=== PATIENT | female | born 1935 | race Caucasian/White ===

== ENCOUNTER 2019-08-24 08:36 | Inpatient (IN) | payer MEDICARE ==
[~2019-08-24] VITALS: Ht 175.3 cm; Wt 55.3 kg
[2019-08-24 08:36] VITALS: BP 150/107
[~2019-08-24 08:36] MED LIST: ACYCLOVIR 400400 MG PO; ASA81BEC PO; BUTALB-APAP-CA1 EACH PO; CALCITRATE200 MG PO; CARAFATE 1 GM TA1 G1 PO; CLONIDINE0.1 PO; COUMADIN 1MG TAB1 M1; DAILY MULTIPLE1 EACH PO; DETROL2 M1 PO; LIPITOR 20 MG T20 M1 PO; LISINOPRIL10 MG PO; MS CONTIN15 MG PO; NEURONTIN 300300 M1 PO; NITROGLYCERIN0.4 MG SUBLING; OMEPRAZOLE 20 M20 M1 PO; OXYBUTYNIN 5 MG5 M2 PO; PACERONE 200 M200 M1 PO; PEPCID20 MG PO; PLAVIX 75 MG TA75 M1 PO; ROXICODONE5 M2 PO; SPIRIVA INH; TOPROL XL25 MG PO; VITAMIN B-12500 MCG PO; VITAMIN D1000 UNI1 PO; VITAMIN E400 UNIT PO
[2019-08-24] MEDS ORDERED: ACYCLOVIR 400400 MG PO (08:50)
[2019-08-24] MEDS ORDERED: CARVEDILOL12.5 MG PO (08:51)
[2019-08-24] MEDS ORDERED: BENTYL 10 MG CA10 M1 PO (08:51)
[2019-08-24] MEDS ORDERED: DIGOXIN0.125 MG/2 PO (08:51)
[2019-08-24] MEDS ORDERED: REQUIP 0.25 M0.25 M1 PO (08:52)
[2019-08-24] MEDS ORDERED: SERTRALINE HCL100 MG PO (08:52)
[2019-08-24] MEDS ORDERED: PANTOPRAZOLE SO40 M1 PO (08:52)
[2019-08-24 09:13] LABS: ABSOLUTE EOSINOPHILS 0.1 thou/uL (0.0-0.7); ABSOLUTE LYMPHOCYTES 0.7 thou/uL (0.8-5.3); ABSOLUTE MONOCYTES 0.3 thou/uL (0.0-1.2); ABSOLUTE NEUTROPHILS 5.1 thou/uL (1.6-8.1); BASOPHILS 0.7 %; EOSINOPHILS 1.1 %; HEMATOCRIT 38.7 % (37.0-47.0); HEMOGLOBIN 12.5 gm/dL (12.0-15.0); LYMPHOCYTES 11.3 %; MCH 29.2 pg (26.0-34.0); MCHC 32.4 g/dL (28.0-37.0); MCV 90.2 fL (80.0-100.0); MONOCYTES 5.5 %; MPV 7.9 fl. (7.2-11.1); NUCLEATED RBCS 0 /100WBC; PLATELET COUNT* 220 thou/uL (150-400); POLYS 81.4 %; RBC 4.29 mil/uL (4.20-5.00); RDW-CV 18.2 % (10.5-14.5); WBC 6.2 thou/uL (4.0-11.0)
[2019-08-24 09:24] LABS: APTT 23.1 Seconds (25.0-31.3); INR 1.3; PROTIME 12.8 Seconds (9.20-11.50)
[2019-08-24 09:32] LABS: ALBUMIN 2.9 g/dL (3.4-5.0); CALCIUM 7.8 mg/dL (8.5-10.1); MAGNESIUM 1.6 mg/dL (1.8-2.4); POTASSIUM 4.8 mmol/L (3.5-5.1); TOTAL BILIRUBIN 0.5 mg/dL (<0.1-1.0); TOTAL PROTEIN 7.6 g/dL (6.4-8.2)
--- NOTE | 2019-08-24 09:32 | NUR ---
THIS NURSE REQUESTED AN ABG ON PT. PHYSICIAN STATED ABG IS NOT NEEDED AT THIS TIME. AN ABG WILL BE ORDERED WHEN PT STATUS DECLINES
[2019-08-24 09:55] LABS: INFLUENZA A ANTIGEN Negative (Negative); INFLUENZA B ANTIGEN Negative (Negative)
--- NOTE | 2019-08-24 10:08 | NUR ---
VERBAL ORDER FOR PT TO BE TAKEN OFF BIPAP AND PLACED ON HIGH FLOW NASAL CANULA FOR TRANSPORTATION TO CT
--- NOTE | 2019-08-24 10:09 | EKG ---
[place] [address] ELECTROCARDIOGRAM REPORT Name: ELIZABETH FISCHER Room: [facility]#: [id number] Admission: Attend Phys: Discharge: Date of : 35 Report #: [id number] THIS REPORT FOR: //name// [facility] Test Date: 2019-08-24 Test Time: 08:48:05 Pat Name: ELIZABETH FISCHER Department: Room: Gender: Tool Keeper: PRECIOUS : 1935 Requested By: Sancho Rutherford Order Number: [id number] MD: Blake Kaye Measurements Intervals [place] Rate: 140 P: ND: QRS: -107 QRSD: 137 T: 52 QT: 308 QTc: 470 Interpretive Statements Atrial fibrillation RBBB and LAFB Repol abnrm suggests ischemia, diffuse leads Compared to ECG 11/05/2014 00:43:52 Possible ischemia now present Sinus rhythm no longer present Electronically Signed On 08-24-2019 10:08:35 [employer] by Blake Kaye [email or web address] <ELECTRONICALLY SIGNED> By: Blake Kaye MD, [facility] 08/24/19 1008 [id number] 7 Blake Kaye MD, FACC /EPI
--- NOTE | 2019-08-24 10:13 | NUR ---
PT BACK IN ROOM, PLACED BACK ON BIPAP
--- NOTE | 2019-08-24 10:14 | NUR ---
JAMILA NOTIFIED UPON PT RETURN FROM CT. PT WAS CONNECTED TO MONITOR
[2019-08-24 14:33] VITALS: BP 125/60
[2019-08-24 15:00] VITALS: BP 125/62
[2019-08-24 20:00] VITALS: BP 113/50
--- NOTE | 2019-08-24 20:00 | NUR ---
PT VSS, AFIB ON TELE, ORIENTED TO SELF AND PLACE ONLY, ORIENTED PT TO ROOM. PATIENT RESTED AFTER ARRIVING AT ON THE UNIT. HOURLY ROUNDING PERFORMED, CALL LIGHT WITHIN REACH. NC@3L, BEDREST DUE TO WEAKNESS, HERNANDEZ CATHETER
[2019-08-25] VITALS: BP 83/46
[2019-08-25 01:39] LABS: HEMATOCRIT 34.7 % (37.0-47.0); MCH 30.1 pg (26.0-34.0); MCHC 34.6 g/dL (28.0-37.0); MCV 87.1 fL (80.0-100.0); MPV 8.3 fl. (7.2-11.1); RBC 3.99 mil/uL (4.20-5.00); RDW-CV 17.7 % (10.5-14.5); WBC 4.6 thou/uL (4.0-11.0)
[2019-08-25 02:09] LABS: ALBUMIN 2.5 g/dL (3.4-5.0); CALCIUM 7.7 mg/dL (8.5-10.1); CREATININE 0.8 mg/dL (0.6-1.3); MAGNESIUM 1.2 mg/dL (1.8-2.4); TOTAL BILIRUBIN 0.6 mg/dL (<0.1-1.0); TOTAL PROTEIN 6.7 g/dL (6.4-8.2)
[2019-08-25 02:11] LABS: POTASSIUM 3.5 mmol/L (3.5-5.1)
[2019-08-25 02:12] LABS: TROPONIN-I LEVEL 2.82 ng/mL (<0.06)
[2019-08-25 04:00] VITALS: BP 115/54
--- NOTE | 2019-08-25 04:31 | NUR ---
ASSUMED PT CARE AT APPROX 1930. PT IS AWAKE AND ORIENTED TO SELF AND PLACE AND SITUATION. VSS ON 3L OF O2/NC. PT IS ON THE BIPAP AT HS. NO DESATURATIONS NOTED. PT IS TRACING AFIB BBB ON THE ANALYST PROGRAMMER. HEPARIN DRIP INFUSING PER PROTOCOL-BLEEDING PRECAUTIONS IN PLACE. PT DENIES CHEST PAIN/DISCOMFORT. HIGH FALL PRECAUTIONS IN PLACE. CALL LIGHT WITHIN REACH. HOURLY ROUNDING DONE FOR SAFETY.
[2019-08-25 08:00] VITALS: BP 107/53
[2019-08-25 11:30] VITALS: BP 110/59
[2019-08-25 11:50] LABS: CHOLESTEROL 100 mg/dL (<200); HDL CHOLESTEROL 47 mg/dL (>40); LDL CHOLESTEROL 49 mg/dL (<100); TC:HDL 2.1 Ratio (Not establshd); TRIGLYCERIDE 23 mg/dL (<150); VLDL 5 mg/dL (<40)
[2019-08-25 11:51] LABS: SERUM ASSESSMENT Clear
--- NOTE | 2019-08-25 13:46 | EKG ---
[place] [address] ELECTROCARDIOGRAM REPORT Name: SHAISTA FISCHERN Sadi Room: [address] ADM IN M.R.#: [id number] Admission: 08/24/19 Attend Phys: Peggy Holliday Discharge: Date of : 35 Report #: [id number] THIS REPORT FOR: //name// [facility] Test Date: 2019-08-24 Test Time: 16:38:02 Pat Name: ELIZABETH FISCHER Department: Room: [address] Gender: F Teletype Adjuster: NICOLETTE : 1935 Requested By: Peggy Dupont Order Number: [id number] MD: Blake Kaye Measurements Intervals [place] Rate: 87 P: MT: QRS: -64 QRSD: 141 T: -59 QT: 415 QTc: 500 Interpretive Statements Atrial fibrillation RBBB and LAFB Left ventricular hypertrophy Compared to ECG 08/24/2019 08:48:05 Left ventricular hypertrophy now present rate slowed Electronically Signed On 08-25-2019 13:46:11 RETAIL SALES TEAMMATE by Blake Kaye [email or web address] <ELECTRONICALLY SIGNED> By: Blake Kaye MD, [facility] 08/25/19 1346 1638 1638 Blake Kaye MD, [facility] /EPI
--- NOTE | 2019-08-25 14:27 | 2DMMODE ---
[place] [address] 2 D/M-MODE ECHOCARDIOGRAM Name: ELIZABETH FISCHER Room: [address] IN [facility]#: [id number] Admission: 08/24/19 Attend Phys: Peggy lopez Sa Discharge: Date of : 35 Date of Service: 08/25/19 1426 Report #: [id number] THIS REPORT FOR: //name// APPROVED REPORT Study performed: 08/25/2019 11:06:33 EXAM: Comprehensive 2D, Doppler, and color-flow Echocardiogram Patient Location: In-Patient Room #: 201 Status: routine BSA: 1.63 HR: 75 bpm BP: 107/53 mmHg Rhythm: NSR Other Information Study Quality: Good Indications Atrial Fibrillation 2D Dimensions IVSd: 15.76 (7-11mm) LVOT Diam: 20.36 (18-24mm) LVDd: 37.98 mm PWd: 11.06 (7-11mm) Ascending Ao: 31.66 (22-36mm) LVDs: 28.57 (25-40mm) Aortic Root: 29.10 mm Volumes Left Atrial Volume (Systole) LA ESV Index: 59.50 mL/m2 Aortic Valve AoV Peak Ian.: 3.02 m/s AO Peak Gr.: 36.57 mmHg LVOT Max P.25 mmHg AO Mean Gr.: 23.71 mmHg LVOT Mean P.19 mmHg LVOT Max V: 0.75 m/s AO V2 VTI: 62.58 cm LVOT Mean V: 0.51 m/s EVANS (VTI): 0.71 cm2 LVOT V1 VTI: 13.69 cm AI Meade: 2.41 m/s2 AI PHT: 472.97 ms Mitral Valve MV Mean Gr.: 3.35 [place] [address] 2 D/M-MODE ECHOCARDIOGRAM Name: ELIZABETH FISCHER Room: [address] IN .R.#: [id number] Admission: 08/24/19 Attend Phys: Peggy lopez Sa Discharge: Date of : 35 Date of Service: 08/25/19 1426 Report #: [id number] MV Decel. Time: 180.87 ms MV PHT: 52.45 ms MVA (PHT): 4.19 cm2 TDI Medial E' Ian.: 0.09 m/s Lateral E' Ian.: 0.11 m/s Pulmonary Valve PV Peak Ian.: 0.93 m/s PV Peak Gr.: 3.45 mmHg Tricuspid Valve RAP Estimate: 5.00 mmHg TR Peak Gr.: 22.57 mmHg RVSP: 27.00 mmHg PA Pressure: 27.00 mmHg Left Ventricle The left ventricle is normal size. There is normal LV segmental wall motion. Mild concentric left ventricular hypertrophy. Left ventricular systolic function is normal. LVEF is 60-65%. This study is not technically sufficient to allow evaluation of the LV diastolic function due to atrial fibrillation. Right Ventricle Right ventricle is mildly dilated. The right ventricular systolic function is normal. Atria Left atrium is moderately dilated. Right atrium is moderately dilated. Aortic Valve Severe aortic valve sclerosis. Moderate aortic regurgitation. Severe aortic stenosis. Mitral Valve There is mitral annular calcification. Mild mitral regurgitation. No evidence of mitral valve stenosis. Tricuspid Valve The tricuspid valve is normal in structure. Trace tricuspid regurgitation. No pulmonary hypertension. Pulmonic Valve The pulmonary valve is normal in structure. There is no pulmonic [place] [address] 2 D/M-MODE ECHOCARDIOGRAM Name: ELIZABETH FISCHER Room: [address]#: [id number] Admission: 08/24/19 Attend Phys: Peggy lopez Sa Discharge: Date of : 35 Date of Service: 08/25/19 1426 Report #: [id number] Great Vessels The aortic root is normal in size. IVC is normal in size and collapses >50% with inspiration. Pericardium There is no pericardial effusion. <Conclusion> The left ventricle is normal size. Mild concentric left ventricular hypertrophy. Left ventricular systolic function is normal. LVEF is 60-65%. This study is not technically sufficient to allow evaluation of the LV diastolic function due to atrial fibrillation. Right ventricle is mildly dilated. Left atrium is moderately dilated. Right atrium is moderately dilated. Severe aortic valve sclerosis. Moderate aortic regurgitation. Severe aortic stenosis. There is mitral annular calcification. Mild mitral regurgitation. Trace tricuspid regurgitation. No pulmonary hypertension. <ELECTRONICALLY SIGNED> By: Jonas Elizabeth MD, FACC 08/25/19 1426 1426 1426 Jonas Elizabeth MD, FACC /INF
--- NOTE | 2019-08-25 15:17 | NUR ---
Pt is A&O, some confusion. Resides at home with dtr, per Pt her recently and dtr came to live with her. CM spoke with dtr on phone. Pt uses a walker or cane at home for mobility. Dtr stated that she has a hard time getting Pt to want to get up at home. Pt has a cpap provided through [employer] [place], dtr confirms that Pt does not always keep it on all night. Dr questioned the settings, dtr states that she doesn't think that there is an issue with the settings. Pt sees kali Ochoa. Hx of . Hx of [facility] [place]. Dtr thinks that Pt will need SNF at [place], and wants [facility] to fax referral. Therapies ordered. Following.
[2019-08-25 16:09] VITALS: BP 86/47
[2019-08-25 20:00] VITALS: BP 113/46
--- NOTE | 2019-08-25 20:00 | NUR ---
RECEIVED REPORT AND ASSUMED CARE OF PT, ASSESSMENT COMPLETED. PT PLEASANT AND ORIENTED BUT CONVERSATIONS DON'T ALWAYS MAKE SENSE. O2 ON AT 2L/NC. TELEMETRY ON SHOWING A-FIB/FLUTTER WITH BBB AND OCC PVC. WILL CONT TO MONITOR AND ASSIST NEEDED.
--- NOTE | 2019-08-25 20:12 | NUR ---
PT VSS, AFIB WITH BBB ON TELE, PATIENT ORIENTED TO SELF AND PLACE, EXTREME CONFUSION, HERNANDEZ, MAX ASSIST WITH WALKER, PT HELPED TO CHAIR. HEPARIN DRIP THERAPEUTIC, PT NPO AT MIDNIGHT, DAUGHTER BROUGHT CPAP FROM HOME. NC@3L
[2019-08-26] VITALS: BP 126/61
[2019-08-26 03:57] VITALS: BP 86/49
--- NOTE | 2019-08-26 05:27 | NUR ---
SLEPT WELL TONIGHT. ASSIST WITH REPOSITIONING IN BED. NPO SINCE CT FOR STRESS TEST TODAY. IV SITES RESTARTED X2. HEPARIN CONT TO INFUSE. NO CHANGE IN ASSESSMENT. HS GOALS OF REST AND SAFETY ACHIEVED. HOURLY ROUNDING OBSERVED.
[2019-08-26 07:50] LABS: HEMATOCRIT 35.6 % (37.0-47.0); HEMOGLOBIN 11.7 gm/dL (12.0-15.0); MCH 28.9 pg (26.0-34.0); MCV 87.7 fL (80.0-100.0); MPV 8.8 fl. (7.2-11.1); RBC 4.06 mil/uL (4.20-5.00); RDW-CV 17.7 % (10.5-14.5); WBC 10.2 thou/uL (4.0-11.0)
[2019-08-26 08:00] VITALS: BP 120/47
[2019-08-26 08:04] LABS: CALCIUM 7.7 mg/dL (8.5-10.1); CREATININE 0.8 mg/dL (0.6-1.3); POTASSIUM 3.3 mmol/L (3.5-5.1)
--- NOTE | 2019-08-26 08:57 | CON ---
[address] [address] CONSULTATION Name: ELIZABETH FISCHER Room: [address] IN M.R.#: [id number] Admission: 08/24/19 Attend Phys: Peggy Holliday Discharge: Date of : 35 Report #: [id number] THIS REPORT FOR: //name// CC: Peggy Kong MD DATE OF SERVICE: 08/25/2019 INDICATION: Non-ST elevation myocardial infarction and atrial fibrillation. HISTORY OF PRESENT ILLNESS: The patient is an 84-year-old female with history of permanent atrial fibrillation who is not anticoagulated due to GI bleeding in the past. She presented to the hospital with acute shortness of breath, beginning midnight yesterday. The patient was noted to be quite hypoxic in the Emergency Room and was placed on supplemental oxygen with improvement in her symptomatology. EKG shows atrial fibrillation with a bifascicular block without acute ST segment abnormalities. Troponins in this setting were initially less than 0.06, 0.70, 3.04 and 2.82. NT-proBNP was 10,100. She did not have chest pain with this episode. At the time of interview, she was stable. By CT of her chest, she has evidence of coronary calcification consistent with underlying coronary artery disease. The patient denies any history of myocardial infarction. PAST MEDICAL HISTORY: 1. Persistent atrial fibrillation. 2. Chronic obstructive pulmonary disease. 3. Coronary artery disease. 4. Hypercoagulable state. 5. History of deep venous thrombosis with pulmonary embolus, status post IVC filter as she is unable to tolerate anticoagulation. 6. Hypertension. 7. Hyperlipidemia. 8. History of tobacco use. 9. History of cerebrovascular accident. 10. Bilateral mastectomy in 1980. 11. Hysterectomy in 1968. 12. Appendectomy remotely. 13. Stroke in 2011. 14. Sleep apnea. 15. Subclavian steal syndrome. 16. ERCP with stone removal in 2013. 17. Carotid endarterectomy in 2009. ALLERGIES: IODINE, PENICILLIN, TETRACYCLINE, PROTONIX, ASPIRIN, CIPROFLOXACIN, CODEINE, [place] [address] CONSULTATION Name: ELIZABETH FISCHER Room: [address] IN [facility]#: [id number] Admission: 08/24/19 Attend Phys: Peggy Holliday Discharge: Date of : 35 Report #: [id number] HOME MEDICATIONS: Acyclovir 400 mg p.o. daily, aspirin 81 mg p.o. daily, atorvastatin 20 mg at bedtime, carvedilol 3.125 mg p.o. b.i.d., vitamin D 1000 units daily, Bentyl 10 mg q.i.d., digoxin 0.125 mg p.o. daily, Neurontin 300 mg t.i.d., lisinopril 10 mg daily, MS Contin 15 mg 2 tablets p.o. b.i.d., multivitamin 1 tablet daily, Nitrostat p.r.n., omeprazole 20 mg daily, oxycodone 5 mg q. 4 hours p.r.n., Protonix 40 mg daily, Requip 0.25 mg daily, sertraline 100 mg daily, Carafate 1 gram p.o. q.a.c. and at bedtime, Spiriva handheld inhaler 18 mcg inhaler daily. FAMILY HISTORY: Positive for heart disease, hypertension, and lung disease. SOCIAL HISTORY: The patient quit smoking remotely. She does not drink alcohol. PHYSICAL EXAMINATION: VITAL SIGNS: Blood pressure 110/59, pulse is in the 70s and irregular. GENERAL: This is a thin, pleasant, elderly female in no distress. HEENT: The patient is wearing glasses. Extraocular muscles intact. Mucous membranes are moist. NECK: Shows no jugular venous distention. I do not appreciate carotid bruit. CHEST: Reveals diminished breath sounds bilaterally. I do not appreciate rales. CARDIOVASCULAR: Reveals an irregularly irregular rhythm with a soft grade 2/6 systolic ejection murmur. I do not appreciate a gallop. ABDOMEN: Reveals normal bowel sounds. The abdomen is soft and nontender. EXTREMITIES: Shows no edema. Peripheral pulses 1+. SKIN: Dry. LABORATORY DATA: A 12-lead EKG shows atrial fibrillation with a bifascicular block. I do not appreciate acute ST-segment abnormality. IMPRESSION AND RECOMMENDATIONS: 1. Elevated troponin, possibly due to type 2 myocardial infarction secondary to hypoxia. We will plan noninvasive stress testing at this time. Further invasive evaluation pending those results. Continue daily aspirin. 2. Hyperlipidemia, at goal on current dose of atorvastatin. Continue as outlined above. 3. Hypertension, adequately controlled on current regimen. 4. Chronic obstructive pulmonary disease per primary physician. 5. Findings of pneumonia on chest x-ray per primary team. 6. Chronic atrial fibrillation, rate adequately controlled. The patient is not anticoagulated due to bleeding problems in the past. <ELECTRONICALLY SIGNED> By: Jonas Elizabeth MD, [facility] 08/26/19 0857 1343 [id number] Elizabeth MD, FACC /nt
[2019-08-26 12:00] VITALS: BP 121/54
--- NOTE | 2019-08-26 12:45 | NUR ---
[facility] can accept Pt for skilled at dc. Per , anticipate dc tomorrow. Updated Linsey at [facility]
[2019-08-26 16:00] VITALS: BP 79/37
--- NOTE | 2019-08-26 16:45 | CARDNUC ---
[place] [address] CARDIAC NUCLEAR IMAGING REPORT Name: ELIZABETH FISCHER Room: [address] IN [facility]#: [id number] Admission: 08/24/19 Attend Phys: Peggy lopez Sa Discharge: Date of : 35 Date of Service: 08/26/19 1644 Report #: [id number] THIS REPORT FOR: //name// APPROVED REPORT Imaging Protocol: Rest Tc-99m/Stress Tc-99m 2 days Study performed: 08/25/2019 11:18:00 Indication: Dyspnea, Increased troponins, respiratory failure. Patient Location: In-Patient Room #: 201 Stress Tech: Jenny Cole Stress Nurse: Harriet Culver RN [place] Tech:KATHRYN Khan Ht: 5 ft 9 in Wt: 115 lbs BSA: 1.63 m2 BMI: 16.98 Medical History Medical History: Angina, Arrhythmia, Atrial Fibrillation, CAD s/p MO, CAD s/p stent, CHF, COPD, Fatigue, Former Smoker, Heart failure, HTN, Hyperlipidemia, PVD, SOB, Stroke/TIA, Weakness, RVR, O2, Hx DVT/PE s/p IVC, Pneumonia, Increased Troponins, Respiratory Failure. Medications: Lipitor, Coreg, Lasix, Solu-medrol, ASA 81 Mg, Digoxin, Lisinopril, NTG. Allergies: Iodine, Penicillins, Tetracyclines, Pantoprazole, ASA, Ciprofloxacin, Codeine, Fentanyl, Pantoprazole. Cardiac Risk Factors: Age, FHX of CAD, HTN, Hyperlipidemia, SOB, Past Smoker, PVD, AFib, RVR. Previous Cardiac Procedures: Myocardial infarction, PCI. Pretest Chest Pain Characteristics: No chest pain Exercise History: Sedentary Physical Disabilities: Weakness, instability 1-2 Assist in transfers. Meds Held (24 hrs): Coreg, NTG. Resting Data Rest SPECT myocardial perfusion imaging was performed in supine position 30 minutes following the intravenous injection of 12.0 mCi of Tc-99m Sestamibi. Time of rest injection: 1315 Date: 08/25/2019 The images were gated to evaluate regional wall motion and calculate [place] [address] CARDIAC NUCLEAR IMAGING REPORT Name: ELIZABETH FISCHER Room: [address]#: [id number] Admission: 08/24/19 Attend Phys: Peggy lopez Sa Discharge: Date of : 35 Date of Service: 08/26/19 1644 Report #: [id number] Administration Route: IV Administration Site: Right Arm Pharmacologic Stress Pharmacologic stress test was performed by injecting Regadenoson 0.4 mg IV push over 10-15 seconds immediately followed by the intravenous injection of 31.8 mCi of Tc-99m Sestamibi. Time of stress injection: 1010 Date: 08/26/2019 Administration Route: IV Administration Site: Right Arm Gated Stress SPECT was performed 40 minutes after stress injection. The images were gated to evaluate regional wall motion and calculate left ventricular ejection fraction. Stress only was performed in the Supine position. Stress Test Details Stress Test: Pharmacologic stress testing performed using 0.4 mg of regadenoson per 5 mL given IV over 10 seconds. Reason for pharmacologic stress test: physical limitation , generalized weakness/instability.. HR Max Heart Rate (APMHR): 136 bpm Resting HR: 78 bpm Target HR (85% APMHR): 115 bpm Max HR Achieved: 113 bpm % of APMHR: 83 Recovery HR: 94 bpm BP Resting BP: 153/61 mmHg Max BP: 107/55 mmHg Recovery BP: 136/60 mmHg ECG Resting ECG: Atrial Fibrillation Stress ECG: Atrial Fibrillation Arrhythmia: None Recovery ECG: Atrial Fibrillation Recovery ST Change: None Clinical Reason for Termination: Completed protocol Stress Symptoms: None Exercise duration: 0 min 0 sec Exercise capacity: 1.00 METs The patient tolerated Lexiscan infusion [place] [address] CARDIAC NUCLEAR IMAGING REPORT Name: ELIZABETH FISCHER Room: [address] IN .R.#: [id number] Admission: 08/24/19 Attend Phys: Peggy lopez Sa Discharge: Date of : 35 Date of Service: 08/26/19 1644 Report #: [id number] Nurse Comments An 84 year old female inpatient presented for sitting/laying nuclear stress test r/t elevated troponins and dyspnea. Patient tolerated test well in supine position. Recovery unremarkable with PO caffeine, effective. Patient was escorted via wheelchair by staff to nuclear medicine for imaging. Patient was stable and stated she felt good at that time. Stress ECG Conclusion The baseline EKG shows atrial fibrillation with nonspecific ST segment and T wave abnormalities. EKGs obtained during and post Lexiscan infusion show atrial fibrillation without significant changes when compared to baseline. Study Quality Study: Good Artifact: No artifact Study Data At rest, the left ventricular ejection fraction was 63%.. Post stress, the left ventricular ejection was 45%.. TID = 1.11. Perfusion Perfusion images at rest show a large region of moderate intensity defect involving the basal to distal inferior and inferolateral wall without other defects noted. Images obtained after Lexiscan stress show a larger in size more severe intensity defect involving the entire basal to apical inferior and inferolateral wall. Wall Motion There is akinesis of the inferior wall and significant hypokinesis of the inferior wall and septum. Nuclear Conclusion ECG Findings: non-diagnostic Clinical Findings: negative for ischemia Nuclear Findings: positive for ischemia Exercise Capacity: not assessed Left Ventricular Function: abnormal Risk Study: high Perfusion images suggest prior inferior infarct with a moderate region of donnie-infarct ischemia. There are wall motion abnormalities as outlined above. Findings consistent with an ischemic cardiomyopathy. [place] [address] CARDIAC NUCLEAR IMAGING REPORT Name: ELIZABETH FISCHER Room: [address] IN M.R.#: [id number] Admission: 08/24/19 Attend Phys: Peggy lopez Sa Discharge: Date of : 35 Date of Service: 08/26/19 1644 Report #: [id number] <Conclusion> The baseline EKG shows atrial fibrillation with nonspecific ST segment and T wave abnormalities. EKGs obtained during and post Lexiscan infusion show atrial fibrillation without significant changes when compared to baseline. <ELECTRONICALLY SIGNED> By: Jonas Elizabeth MD, FACC 08/26/19 1644 43 43 Jonas Elizabeth MD, FACC /INF
--- NOTE | 2019-08-26 17:23 | NUR ---
VSS, ASSUMED CARE IN THE AM, ASSESSMENT PERFORMED AND CHARTED, FALL PRECAUTIONS IN PLACE NAD CALL LIGHT IN REACH, PT IS A&O3 SHE IS CONFUSED. PT DENIES ANY PAIN, PT IS TRACING AFIB ON THE MONITOR, PT IS UP WITH ONE, PT GOAL IS TO COMPLETE STRESS TEST, PT HAS COMPLETED THIS, WILL FOLLOW PLAN OF CARE.
[2019-08-26 20:00] VITALS: BP 97/77
[2019-08-27] VITALS (7 sets, daily range): BP systolic 74–115; BP diastolic 46–62
--- NOTE | 2019-08-27 05:15 | NUR ---
PT REMAINS ALERT WITH CONFUSION, UNABLE TO WEAR CPAP D/T MISSING PIECE ON MASK, RT AWARE AND GETTING NEW MASK FOR PT. PT PAIN IS CONTROLLED WITH SCHEDULED PAIN MEDIACTION. PT REPORTS NO CONCERNS AT THIS TIME, CURRENTLY IN BED WITH CALL LIGHT WITHIN REACH AND BED ALARM ON.
[2019-08-27 05:17] LABS: HEMOGLOBIN 11.2 gm/dL (12.0-15.0); MCV 87.8 fL (80.0-100.0); MPV 9.1 fl. (7.2-11.1); RBC 3.87 mil/uL (4.20-5.00); RDW-CV 17.9 % (10.5-14.5); WBC 8.9 thou/uL (4.0-11.0)
[2019-08-27 05:32] LABS: CALCIUM 7.8 mg/dL (8.5-10.1); CREATININE 0.9 mg/dL (0.6-1.3); MAGNESIUM 1.7 mg/dL (1.8-2.4); POTASSIUM 4.2 mmol/L (3.5-5.1)
[2019-08-27] MEDS ORDERED: LEVAQUIN 750 M750 MG PO (08:50)
--- NOTE | 2019-08-27 10:45 | NUR ---
Pt's dc delayed, V can accept Pt for skilled tomorrow. Updated nurse and CM to updated dtr.
[2019-08-28 04:11] VITALS: BP 90/45
--- NOTE | 2019-08-28 05:02 | NUR ---
PT CONTIUNES TO BE ALERT WITH CONFUSION AND IMPULISIVE BEHAVIORS AT TIMES. MAINTAINING O2 SAT > THAN 90% ON 2L NC. UNABLE TO WEAR CPAP D/T MISSING MASK PIECE. PT HAS BEEN ABLE TO SLEEP MORE THIS SHIFT THAN PRIOR TWO HS SHIFTS. DICCHARGE PLANNED FOR TOMORROW WITH PLACEMENT. CURRENTLY ASLEEP IN BED WITH CALL LIGHT WITHIN REACH AND BED ALARM ON.
[2019-08-28 08:03] VITALS: BP 135/57
[2019-08-28] MEDS ORDERED: XANAX 0.25 MG0.25 MG PO (10:45)
--- NOTE | 2019-08-28 13:44 | NUR ---
VSS, ASSUMED CARE IN THE AM, ASEESSMENT PERFORMED AND CHARTED, FALL PRECAUTIONS IN PLACE AND CALL LIGHT IN REACH, PT IS A&O2 CONFUSED AT TIMES AND UP WITH STAND BY, PT DENIES ANY PAIN, I HAVE TAKEN OUT HERNANDEZ AND SHE HAS VOIDED AT THIS TIME, PT IS ON 2L NC AND HER GOAL IS TO WORK WITH PT/OT AND SIT UP IN CHAIR, AT THIS THIS TIME I HAVE BEEN GIVEN DISCHARGE ORDERS, FILLED OUT D/C PAPERS, CALLED REPORT TO M, PROVITED CALL BACK NUMBER,, IV AND TELE MONITOR HAS BEEN REMOVED, PT IS TO TRANSPORT VIA W/C VAN, WILL FOLLOW WITH PLAN OF CARE.
[2019-08-28 13:51] VITALS: BP 94/58
[2019-08-28] MEDS ORDERED: MS CONTIN 30 MG30 M1 PO (17:44)
== END 2019-08-28 15:35 | DRG 871 ==
LOC: M.ERS 08:36 → M.TBA-ER 10:36 → M.2W 10:36
PROVIDERS: Family Medicine; Internal Medicine Cardiovascular Disease; ADMIT Family Medicine
PROC: 5A09357 Assistance with Respiratory Ventilation, Less than 24 Consecutive Hours, Continuous Positive Airway Pressure (ICD-10-PCS; principal; 2019-08-24)
PROC: 5A09357 Assistance with Respiratory Ventilation, Less than 24 Consecutive Hours, Continuous Positive Airway Pressure (ICD-10-PCS; 2019-08-25)
PROC: 5A09357 Assistance with Respiratory Ventilation, Less than 24 Consecutive Hours, Continuous Positive Airway Pressure (ICD-10-PCS; 2019-08-26)
PROC: 5A09357 Assistance with Respiratory Ventilation, Less than 24 Consecutive Hours, Continuous Positive Airway Pressure (ICD-10-PCS; 2019-08-27)
PROC: 5A09357 Assistance with Respiratory Ventilation, Less than 24 Consecutive Hours, Continuous Positive Airway Pressure (ICD-10-PCS; 2019-08-28)
DX: A41.9 Sepsis, unspecified organism (principal); J18.9 Pneumonia, unspecified organism; J96.01 Acute respiratory failure with hypoxia; I21.4 Non-ST elevation (NSTEMI) myocardial infarction; I50.33 Acute on chronic diastolic (congestive) heart failure; J44.1 Chronic obstructive pulmonary disease with (acute) exacerbation; J44.0 Chronic obstructive pulmonary disease with (acute) lower respiratory infection; I48.21 Permanent atrial fibrillation; D68.59 Other primary thrombophilia; R65.20 Severe sepsis without septic shock; B02.9 Zoster without complications; E78.00 Pure hypercholesterolemia, unspecified; M25.551 Pain in right hip; M19.90 Unspecified osteoarthritis, unspecified site; G47.30 Sleep apnea, unspecified; I73.9 Peripheral vascular disease, unspecified; I25.10 Atherosclerotic heart disease of native coronary artery without angina pectoris; E78.5 Hyperlipidemia, unspecified; K59.00 Constipation, unspecified; I11.0 Hypertensive heart disease with heart failure; I35.0 Nonrheumatic aortic (valve) stenosis; Z86.718 Personal history of other venous thrombosis and embolism; Z90.89 Acquired absence of other organs; Z99.81 Dependence on supplemental oxygen; Z90.710 Acquired absence of both cervix and uterus; Z79.01 Long term (current) use of anticoagulants; Z90.13 Acquired absence of bilateral breasts and nipples; Z87.01 Personal history of pneumonia (recurrent); I25.2 Old myocardial infarction; Z86.73 Personal history of transient ischemic attack (TIA), and cerebral infarction without residual deficits; Z86.711 Personal history of pulmonary embolism; Z79.82 Long term (current) use of aspirin; Z79.891 Long term (current) use of opiate analgesic; Z79.899 Other long term (current) drug therapy; Z88.5 Allergy status to narcotic agent; Z88.0 Allergy status to penicillin; Z88.8 Allergy status to other drugs, medicaments and biological substances; Z91.041 Radiographic dye allergy status

== ENCOUNTER 2019-09-01 06:26 | Inpatient (IN) | payer MEDICARE ==
[~2019-09-01] VITALS: Ht 175.3 cm; Wt 58.7 kg
[~2019-09-01 06:26] MED LIST changes: +BENTYL 10 MG CA10 M1 PO; +CARVEDILOL12.5 MG PO; +DIGOXIN0.125 MG/2 PO; +LEVAQUIN 750 M750 MG PO; +MS CONTIN 30 MG30 M1 PO; +PANTOPRAZOLE SO40 M1 PO; +REQUIP 0.25 M0.25 M1 PO; +SERTRALINE HCL100 MG PO; +XANAX 0.25 MG0.25 MG PO
[2019-09-01 06:27] VITALS: BP 88/42
[2019-09-01 06:56] LABS: BE 1.5 mmol/L (-2 to +3); PCO2 41.9 mmHg (35.0-45.0); pH 7.415 (7.340-7.450)
[2019-09-01 06:59] LABS: PO2 265.7 mmHg (75.0-100.0)
[2019-09-01 07:04] LABS: ABSOLUTE EOSINOPHILS 0.1 thou/uL (0.0-0.7); ABSOLUTE LYMPHOCYTES 0.5 thou/uL (0.8-5.3); ABSOLUTE MONOCYTES 0.3 thou/uL (0.0-1.2); ABSOLUTE NEUTROPHILS 2.8 thou/uL (1.6-8.1); BASOPHILS 0.3 %; EOSINOPHILS 3.7 %; HEMATOCRIT 22.1 % (37.0-47.0); HEMOGLOBIN 7.4 gm/dL (12.0-15.0); LYMPHOCYTES 14.4 %; MCH 29.2 pg (26.0-34.0); MCHC 33.3 g/dL (28.0-37.0); MCV 87.7 fL (80.0-100.0); MONOCYTES 8.7 %; MPV 8.6 fl. (7.2-11.1); NUCLEATED RBCS 0 /100WBC; PLATELET COUNT* 118 thou/uL (150-400); POLYS 72.9 %; RBC 2.52 mil/uL (4.20-5.00); RDW-CV 17.1 % (10.5-14.5); WBC 3.8 thou/uL (4.0-11.0)
[2019-09-01 07:12] LABS: INR 1.4; PROTIME 14.2 Seconds (9.20-11.50)
[2019-09-01] MEDS ORDERED: MILK OF MA400 MG/5 M PO (07:14)
[2019-09-01] MEDS ORDERED: DULCOLAX STOOL100 M1 PO (07:14)
[2019-09-01] MEDS ORDERED: PROAIR HFA8.5 GM INH (07:15)
[2019-09-01] MEDS ORDERED: TYLENOL325 MG PO (07:15)
[2019-09-01] MEDS ORDERED: SYMBICORT160 MCG/4. INH (07:15)
[2019-09-01] MEDS ORDERED: LEVAQUIN 750 M750 MG PO (07:15)
[2019-09-01] MEDS ORDERED: MUCINEX600 MG PO (07:16)
[2019-09-01 07:18] LABS: ALBUMIN 1.2 g/dL (3.4-5.0); ALKALINE PHOSPHATASE 63 U/L (46-116); BUN 18 mg/dL (7-18); CREATININE 0.8 mg/dL (0.6-1.3); GLUCOSE 62 mg/dL (70-99); LIPASE 99 U/L (73-393); NT-PRO BRAIN NAT PEPTIDE 3671 pg/mL (<300); SGOT 21 U/L (15-37); SGPT 16 U/L (30-65); TOTAL BILIRUBIN 0.2 mg/dL (<0.1-1.0); TOTAL PROTEIN 3.3 g/dL (6.4-8.2)
[2019-09-01 07:26] LABS: URINE BILIRUBIN NEGATIVE (Negative); URINE BLOOD NEGATIVE (Negative); URINE CLARITY CLEAR; URINE COLOR YELLOW; URINE GLUCOSE-RANDOM NEGATIVE (Negative); URINE KETONES NEGATIVE (Negative); URINE LEUKOCYTES-REFLEX NEGATIVE (Negative); URINE NITRITE-REFLEX NEGATIVE (Negative); URINE PROTEIN NEGATIVE (Negative); URINE UROBILINOGEN 0.2 E.U./dl (0.2-1.0)
[2019-09-01 07:30] LABS: ANION GAP 8 mmol/L (7-16); CHLORIDE 113 mmol/L (98-107); CO2 22 mmol/L (21-32); SODIUM 143 mmol/L (136-145)
[2019-09-01 07:32] LABS: POTASSIUM 2.4 mmol/L (3.5-5.1)
[2019-09-01 07:33] LABS: CALCIUM < 5.0 mg/dL (8.5-10.1)
--- NOTE | 2019-09-01 07:44 | NUR ---
UNABLE TO REACH AT THIS TIME
[2019-09-01 10:12] LABS: PHOSPHORUS* 2.1 mg/dL (2.5-4.9)
[2019-09-01 10:14] LABS: MAGNESIUM 0.9 mg/dL (1.8-2.4)
--- NOTE | 2019-09-01 12:18 | NUR ---
SEE BLOOD TRANSFUSION SHEET
--- NOTE | 2019-09-01 12:34 | NUR ---
SPOKE WITH PT'S BHUMIKAOA, SOFIA EID [phone]
[2019-09-01 14:00] VITALS: BP 99/42
[2019-09-01 14:33] LABS: % SATURATION 20 % (20-39); IRON 22 ug/dL (50-175)
--- NOTE | 2019-09-01 14:37 | EKG ---
[place] [address] ELECTROCARDIOGRAM REPORT Name: ELIZABETH FISCHER Room: [place] [address] ADM IN .R.#: [id number] Admission: 09/01/19 Attend Phys: Devon Rivera Discharge: Date of : 35 Report #: [id number] THIS REPORT FOR: //name// [facility] ED Test Date: 2019-09-01 Test Time: 06:36:32 Pat Name: ELIZABETH FISCHER Department: Room: [facility] Gender: F Flat Sorter Processor: : 1935 Requested By: Soheila Jones Order Number: [id number] MD: Jonas Elizabeth Measurements Intervals [place] Rate: 74 P: GA: QRS: -70 QRSD: 143 T: -54 QT: 436 QTc: 484 Interpretive Statements Atrial fibrillation RBBB and LAFB Probable left ventricular hypertrophy Compared to ECG 08/24/2019 16:38:02 No significant changes Electronically Signed On 09-01-2019 14:37:09 IN FLIGHT REFUELING CRAFTSMAN by Jonas Elizabeth [email or web address] <ELECTRONICALLY SIGNED> By: Jonas Elizabeth MD, [facility] 09/01/19 1437 0636 0636 Jonas Elizabeth MD, [facility] /EPI
[2019-09-01 14:42] LABS: HEMATOCRIT 35.7 % (37.0-47.0)
[2019-09-01 14:45] LABS: HEMOGLOBIN 11.6 gm/dL (12.0-15.0)
[2019-09-01 15:30] LABS: ABSOLUTE EOSINOPHILS 0.1 thou/uL (0.0-0.7); ABSOLUTE LYMPHOCYTES 1.3 thou/uL (0.8-5.3); ABSOLUTE MONOCYTES 0.6 thou/uL (0.0-1.2); ABSOLUTE NEUTROPHILS 3.8 thou/uL (1.6-8.1); BASOPHILS 0.3 %; EOSINOPHILS 2.1 %; HEMATOCRIT 37.7 % (37.0-47.0); HEMOGLOBIN 12.3 gm/dL (12.0-15.0); LYMPHOCYTES 22.7 %; MCH 28.2 pg (26.0-34.0); MCHC 32.6 g/dL (28.0-37.0); MCV 86.5 fL (80.0-100.0); MONOCYTES 10.4 %; MPV 8.2 fl. (7.2-11.1); NUCLEATED RBCS 0 /100WBC; PLATELET COUNT* 156 thou/uL (150-400); POLYS 64.5 %; RBC 4.35 mil/uL (4.20-5.00); WBC 5.9 thou/uL (4.0-11.0)
[2019-09-01 15:50] LABS: BUN 20 mg/dL (7-18); CHLORIDE 112 mmol/L (98-107); TOTAL BILIRUBIN 0.3 mg/dL (<0.1-1.0); TOTAL PROTEIN 3.1 g/dL (6.4-8.2)
[2019-09-01 16:05] LABS: ALBUMIN 1.2 g/dL (3.4-5.0); ALKALINE PHOSPHATASE 62 U/L (46-116); ANION GAP 10 mmol/L (7-16); CO2 20 mmol/L (21-32); CREATININE 0.8 mg/dL (0.6-1.3); GLUCOSE 58 mg/dL (70-99); PHOSPHORUS* 2.1 mg/dL (2.5-4.9); SGOT 24 U/L (15-37); SGPT 17 U/L (30-65); SODIUM 142 mmol/L (136-145)
[2019-09-01 16:07] LABS: POTASSIUM 2.4 mmol/L (3.5-5.1)
[2019-09-01 16:08] LABS: CALCIUM < 5.0 mg/dL (8.5-10.1)
[2019-09-01 17:27] VITALS: BP 123/48
[2019-09-01 20:00] VITALS: BP 114/52
[2019-09-02] VITALS (7 sets, daily range): BP systolic 77–119; BP diastolic 37–53
--- NOTE | 2019-09-02 04:50 | NUR ---
ASSUMED PT CARE AT APPROX 1930. PT IS AWAKE AND ORIENTED TO SELF AND PLACE. VSS ON 4L OF O2/NC. PANTOGRAPH I ENGRAVER IN PLACE TRACINF AFIB-RATE CONTROLLED. ASSESSMENT DONE AND CHARTED. PT DENIES PAIN/DISCOMFORT. POSITION CHANGES DONE. HIGH FALL PRECAUTIONS IN PLACE. CALL LIGHT WITHIN REACH. HOURLY ROUNDING DONE FOR PT SAFETY.
[2019-09-02 05:26] LABS: ABSOLUTE LYMPHOCYTES 0.5 thou/uL (0.8-5.3); ABSOLUTE MONOCYTES 0.2 thou/uL (0.0-1.2); ABSOLUTE NEUTROPHILS 2.2 thou/uL (1.6-8.1); BASOPHILS 0.3 %; HEMATOCRIT 35.6 % (37.0-47.0); HEMOGLOBIN 11.7 gm/dL (12.0-15.0); LYMPHOCYTES 17.2 %; MCHC 32.8 g/dL (28.0-37.0); MCV 85.2 fL (80.0-100.0); MONOCYTES 7.6 %; MPV 8.3 fl. (7.2-11.1); NUCLEATED RBCS 0 /100WBC; PLATELET COUNT* 166 thou/uL (150-400); POLYS 74.9 %; RBC 4.18 mil/uL (4.20-5.00); RDW-CV 19.8 % (10.5-14.5); WBC 2.9 thou/uL (4.0-11.0)
[2019-09-02 05:50] LABS: CREATININE 0.8 mg/dL (0.6-1.3); TOTAL BILIRUBIN 0.5 mg/dL (<0.1-1.0); TOTAL PROTEIN 5.7 g/dL (6.4-8.2)
[2019-09-02 05:51] LABS: CALCIUM 7.5 mg/dL (8.5-10.1); POTASSIUM 5.8 mmol/L (3.5-5.1)
--- NOTE | 2019-09-02 09:06 | NUR ---
assumed pt care report received from nurse pt is aox2. on 4 l nc. o2 saturation at 97%. pt lying in bed. no pain. denies nausea/vomiting. vs taken. bp pressure low 77/46. pt kept in trendelenburg position for 30 minutes. vs at 0830 am. blood pressure 111/51, heart rate 65. lisinopril and coreg not given due to low bp. pt currently eating breakfast. bed alarm on. call light within reach. will continue to monitor
--- NOTE | 2019-09-02 11:39 | NUR ---
FAXED REFERRAL TO [facility] [phone]; [phone]. WILL CALL TO CONFIRM THAT THEY HAVE RECEIVED.
--- NOTE | 2019-09-02 12:00 | NUR ---
MET WITH PT TO DISCUSS HOME SITUATION/DC PLANNING. PT JUST DC'D TO [facility] ON 08/28, PLANS TO RETURN THERE AT [place]. ASKED DC RETURNED GOODS INSPECTOR TO FAX UPDATE TO [facility]. [facility] STATED THEY WILL BE ABLE TO ACCEPT PT BACK AT [place]. PRIOR TO SNF, PT LIVES WITH DTR, USES WALKER AND CPAP THRU [facility]. PT'S SPOUSE RECENTLY AND SHE HAS HAD DECLINE IN FUNCTION. NO FAMILY HERE AT THIS TIME. PER CHART, DTR/SOFIA IS DPOA. WILL FOLLOW
--- NOTE | 2019-09-02 14:59 | EKG ---
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
[2019-09-02 15:53] LABS: ABSOLUTE MONOCYTES 0.8 thou/uL (0.0-1.2); ABSOLUTE NEUTROPHILS 4.9 thou/uL (1.6-8.1); BASOPHILS 0.3 %; EOSINOPHILS 0.6 %; HEMATOCRIT 35.9 % (37.0-47.0); HEMOGLOBIN 11.7 gm/dL (12.0-15.0); LYMPHOCYTES 15.1 %; MCH 27.8 pg (26.0-34.0); MCHC 32.7 g/dL (28.0-37.0); MONOCYTES 11.6 %; MPV 8.4 fl. (7.2-11.1); NUCLEATED RBCS 0 /100WBC; PLATELET COUNT* 197 thou/uL (150-400); POLYS 72.4 %; RBC 4.22 mil/uL (4.20-5.00); WBC 6.8 thou/uL (4.0-11.0)
[2019-09-02 16:09] LABS: CALCIUM 7.6 mg/dL (8.5-10.1); CREATININE 0.8 mg/dL (0.6-1.3); TOTAL BILIRUBIN 0.4 mg/dL (<0.1-1.0)
[2019-09-02 16:10] LABS: POTASSIUM 4.8 mmol/L (3.5-5.1)
--- NOTE | 2019-09-02 16:38 | NUR ---
coreg and lisinopril not given. pt sbp in the 80s. pt is asymptomatic. iv ns given as ordered, currently infusing. no further complaint. troponin elevated.see chart. result communicateed to hospitalist. ekg shows afib reading with rate controlled. will continue to monitor
[2019-09-03 00:25] VITALS: BP 114/52
--- NOTE | 2019-09-03 03:49 | NUR ---
PT ALERT ORIENTED. UP WITH ASSIST OF ONE TO BR. O2 AT 4 LITERS NC. TELEMETRY SHOWS AFIB. WCTM.
[2019-09-03 04:00] VITALS: BP 116/52
[2019-09-03 04:32] LABS: ABSOLUTE EOSINOPHILS 0.2 thou/uL (0.0-0.7); ABSOLUTE LYMPHOCYTES 1.4 thou/uL (0.8-5.3); ABSOLUTE MONOCYTES 0.5 thou/uL (0.0-1.2); ABSOLUTE NEUTROPHILS 4.9 thou/uL (1.6-8.1); BASOPHILS 0.5 %; EOSINOPHILS 3.3 %; HEMATOCRIT 34.7 % (37.0-47.0); HEMOGLOBIN 11.4 gm/dL (12.0-15.0); LYMPHOCYTES 19.7 %; MCH 28.1 pg (26.0-34.0); MCV 85.3 fL (80.0-100.0); MONOCYTES 6.6 %; MPV 8.2 fl. (7.2-11.1); NUCLEATED RBCS 0 /100WBC; PLATELET COUNT* 197 thou/uL (150-400); POLYS 69.9 %; RBC 4.07 mil/uL (4.20-5.00); RDW-CV 19.9 % (10.5-14.5)
[2019-09-03 08:26] VITALS: BP 165/62
--- NOTE | 2019-09-03 10:00 | NUR ---
ASSUMED CARE AFTER REPORT APPROX 0730. PLEASANTLY CONFUSED, ORIENTED TO SELF, UNABLE TO EXPRESS NEEDS TO STAFF. ASSESSMENT COMPLETED, VS OBTAINED, WNL. RISK AND INSURANCE CONSULTANT IN PLACE, AFIB BBB. FREQUENT CHECKS FOR PATIENT SAFETY AND NEEDS.
--- NOTE | 2019-09-03 12:02 | NUR ---
CONTINUE TO FOLLOW, SPOKE WITH NONA/SOFIA OVER THE PHONE. PLAN IS FOR PT TO RETURN TO [facility] AT [place]. SOFIA IS AT HOME WITH PNEUMONIA ALSO AND WANTS TO BE CALLED FOR ANY CONCERNS. [phone]
[2019-09-03 12:27] VITALS: BP 119/47
[2019-09-03 16:17] VITALS: BP 152/62
--- NOTE | 2019-09-03 17:02 | EKG ---
[place] [address] ELECTROCARDIOGRAM REPORT Name: ELIZABETH FISCHER Room: [address] ADM IN M.R.#: [id number] Admission: 09/01/19 Attend Phys: Devon Rivera Discharge: Date of : 35 Report #: [id number] THIS REPORT FOR: //name// 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: : 1935 Requested By: Baljeet Francisco Order Number: [id number] Reading MD: Ariel Pearl Measurements Intervals [place] Rate: 68 P: NV: QRS: -53 QRSD: 144 T: -27 QT: 428 QTc: 456 Interpretive Statements Atrial fibrillation RBBB and LAFB LVH with secondary repolarization abnormality Compared to ECG 09/01/2019 15:08:24 Left ventricular hypertrophy now present Early repolarization now present Electronically Signed On 09-03-2019 17:02:20 OCULAR CARE TECHNICIAN by Ariel Pearl [email or web address] <ELECTRONICALLY SIGNED> By: Ariel Pearl MD, [facility] 09/03/19 1702 1555 1555 Ariel Pearl MD, [facility] /EPI
[2019-09-03 20:38] VITALS: BP 107/68
[2019-09-04] VITALS (7 sets, daily range): BP systolic 91–120; BP diastolic 51–74
--- NOTE | 2019-09-04 05:34 | NUR ---
PT IS ABLE TO COMMUNICATE HER NEEDS TO STAFF WITH SOME DIFFICULTY; SHE IS USUALLY CONFUSED, BUT CAN ANSWER SOME QUESTIONS AND FOLLOW SOME COMMANDS AT TIMES. SHE IS OFTEN IMPULSIVE AND SOMETIMES INCONTINENT. CURRENT PAIN MEDICATION REGIMEN HAS BEEN ADEQUATE FOR CONTROLLING HER CHRONIC PAIN UP TO THIS TIME. POSSIBLE DISCHARGE BACK TO [facility].
--- NOTE | 2019-09-04 09:00 | NUR ---
ASSUMED CARE OF PT AT 0730. PT LYING IN BED. PT A&0X1, CONFUSED, IMPULSIVE AND FORGETFUL. BED ALARM IN PLACE. PT TRACING AFIB ON THE LOG DECK TENDER-RATE CONTROLLED. ON RA SAT UPPER 93%. PT DENIES ANY PAIN OR SHORTNESS OF BREATH AT THIS TIME. PT UP WITH 1 ASSIST AND WALKER TO BS. PT GOAL FOR TODAY IS OBTAIN URINALYSIS, INCREASE ACTIVITY AND MONITOR ORIENTATION. AM ASSESSMENT CHARTED. MEDICATIONS PER OCT. PT REPOSITIONED EVERY 2 HOURS FOR COMFORT. . HOURLY ROUNDING OBSERVED. BED IN LOW POSITION, BED ALARM IN PLACE. FALL PRECAUTIONS IN PLACE. CALL LIGHT WITHIN REACH. WILL CONTINUE PLAN OF CARE.
--- NOTE | 2019-09-04 13:45 | CON ---
[address] [address] CONSULTATION Name: ELIZABETH FISCHER Room: [address] IN M.R.#: [id number] Admission: 09/01/19 Attend Phys: Devon Rivera Discharge: Date of : 35 Report #: [id number] THIS REPORT FOR: //name// CC: VARSHA physician/PCP Baljeet Francisco INDICATION: Non-ST elevation myocardial infarction in the setting of acute hypoxic respiratory failure. HISTORY OF PRESENT ILLNESS: The patient is a very pleasant 84-year-old moderately demented white female known to myself from prior admission. She was brought to the Emergency Room by EMS due to acute respiratory failure. O2 sat on arrival was 70%. The patient was found to be hypokalemic and anemic as well. The patient was transfused a unit of blood and placed on supplemental oxygen. At the time of my interview, she is stable. She denies any chest pain or shortness of breath presently. She has a history of coronary artery disease based on findings of dense coronary calcification on CT scan of her chest recently. At her last hospitalization with similar presentation, she had elevated troponin as well. Throughout that hospitalization, she denied chest pain as well. By echocardiogram last week, she has an ejection fraction of 60-65%. She has mild concentric left ventricular hypertrophy. Cardiac stress testing showed evidence of inferolateral infarct with a moderate region of periinfarct ischemia. 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 She returned prematurely here to the Emergency Room. She has chronic atrial fibrillation. She is not anticoagulated due to bleeding problems. PAST MEDICAL HISTORY: 1. Coronary artery disease. 2. Remote history of myocardial infarction based on noninvasive studies. 3. Chronic atrial fibrillation. 4. COPD. 5. Hypercoagulable state due to atrial fibrillation. 6. History of DVT, status post IVC filter placement. 7. Hypertension. 8. Hyperlipidemia. 9. Remote history of tobacco use. 10. History of CVA. 11. Bilateral mastectomy in 1980. 12. Hysterectomy 1968. 13. Appendectomy remotely. 14. Stroke 2011. 15. Sleep apnea. 16. [place] [address] CONSULTATION Name: ELIZABETH FISCHER Room: [address]#: [id number] Admission: 09/01/19 Attend Phys: Devon Rivera Discharge: Date of : 35 Report #: [id number] 17. ERCP with stone retrieval in 2013. 18. Carotid endarterectomy 2009. ALLERGIES: IODINE, PENICILLIN, TETRACYCLINE, PROTONIX, ASPIRIN, CIPROFLOXACIN, CODEINE, AND FENTANYL. HOME MEDICATIONS: Tylenol p.r.n., acyclovir 200 mg daily, albuterol 2 puffs q 4-6 h. as needed, alprazolam 0.25 mg t.i.d. p.r.n., aspirin 81 mg daily, Lipitor 20 mg at bedtime, Symbicort 160/4.5 as directed, carvedilol 3.125 mg b.i.d., vitamin D 1000 units daily, Bentyl 10 mg q.i.d., digoxin 0.125 mg daily, Colace 1 capsule b.i.d., gabapentin 300 mg t.i.d., Mucinex 600 mg q.12 h., Levaquin 750 mg daily, lisinopril 10 mg daily, milk of magnesia p.r.n., MS Contin 30 mg b.i.d., multivitamin 1 daily, Nitrostat p.r.n., omeprazole 20 mg daily, oxycodone 5 mg q. 4 h. p.r.n., ropinirole 0.25 mg daily, sertraline 100 mg daily, Carafate 1 g q.a.c. and bedtime, and Spiriva Handihaler daily. FAMILY HISTORY: Positive for heart disease, hypertension, and lung disease. SOCIAL HISTORY: The patient quit smoking remotely. She does not drink alcohol. PHYSICAL EXAMINATION: VITAL SIGNS: Stable. Blood pressure 123/69, pulse 70, and irregular. GENERAL: This is a pleasant, elderly, thin, white female, in no distress. HEENT: Extraocular muscles intact. Mucous membranes moist. NECK: Shows jugular venous distention. I do not appreciate carotid bruit. CHEST: Reveals diminished breath sounds bilaterally. CARDIOVASCULAR: Reveals an irregularly irregular rhythm with a 2/6 systolic ejection murmur. I do not appreciate gallop. ABDOMEN: Reveals normal bowel sounds. The abdomen is soft, nontender. EXTREMITIES: Shows no edema. Peripheral pulses are 1+ and palpable. SKIN: Dry. IMPRESSION AND RECOMMENDATIONS: 1. Recurrent elevation of troponin in the setting of acute hypoxia with underlying known coronary disease. This may represent a type 2 myocardial infarction, although the patient is not having symptoms to suggest acute coronary syndrome. At this point, we will be in favor of continuing medical management. If the patient's respiratory status improves and her mental status clears, we may consider discussion of invasive evaluation. 2. Hyperlipidemia. Continue atorvastatin. 3. Hypoxic respiratory failure. The patient has multiple issues, COPD, chronic narcotic use, and likely diastolic/systolic heart failure. Follow BNP. [facility] [address] [place] [address] CONSULTATION Name: ELIZABETH FISCHER Room: [address] IN M.R.#: [id number] Admission: 09/01/19 Attend Phys: Devon Rivera Discharge: Date of : 35 Report #: [id number] 4. Chronic atrial fibrillation, adequately rate controlled. She is not anticoagulated due to bleeding. <ELECTRONICALLY SIGNED> By: Jonas Elizabeth MD, FACC 09/04/19 1345 1744 [id number] Elizabeth MD, FACC /nt
--- NOTE | 2019-09-04 16:22 | NUR ---
[facility] CAN ACCEPT PT AT [place]. [facility] [phone] [facility] [phone]
--- NOTE | 2019-09-04 16:43 | NUR ---
NO ACUTE CHANGES THROUGHOUT SHIFT. REFER TO CHARTING. CRACKLES NOTED TO LOWERS LOBES- DR DEJESUS NOTIFIED. ORDERS RECEIVED FOR ID CONULT- ADDITIONAL ANTIBIOTICS ADDED-REFER TO EMAR. RESPIRATORY VIRAL PANEL ORDERED WELL AND SENT TO LAB. AWAITING RESULTS. PT PLACED ON 2L NC FOR COMFORT SAT 95%. PT REQUIRES ASSIST WITH MEALS- CONTNUES TO BE A&0X1. IVF DISCONTINUED. NOT PROGRESSING TOWARDS GOALS. IS ENCOURAGED AND TAUGHT TO PT. MEDICATIONS PER MAR. PT REPOSITIONED EVERY 2 HOURS FOR COMFORT. HOURLY ROUNDING OBSERVED. BED IN LOW POSITION. BED ALARM IN PLACE. FALL PRECAUTIONS IN PLACE. CALL LIGHT WITHIN REACH. WILL CONTINUE PLAN OF CARE.
[2019-09-05 04:21] VITALS: BP 109/69
--- NOTE | 2019-09-05 06:01 | NUR ---
PT IS ABLE TO COMMUNICATE HER NEEDS TO STAFF WITH SOME DIFFICULTY; SHE IS OFTEN CONFUSED AND PARTIALLY DISORIENTED, SO SHE CAN BE IMPULSIVE WELL. CURRENT SCHEDULED PAIN MEDICATION REGIMEN HAS BEEN ADEQUATE FOR CONTROLLING HER PAIN UP TO HIS TIME. RECENT CHEST XR SHOWED INCREASED LEFT LUNG INFILTRATES; MD HAS ADDED ANTIBIOTICS ACCORDINGLY. RVP AND URINE STREP/LEGIONELLA TESTING PENDING. CURRENT DISCHARGE PLAN IS FOR HER TO RETURN TO [facility] WHEN SHE LEAVES.
[2019-09-05 07:40] VITALS: BP 113/46
[2019-09-05 08:01] LABS: HEMATOCRIT 34.5 % (37.0-47.0); HEMOGLOBIN 11.3 gm/dL (12.0-15.0); MCH 27.8 pg (26.0-34.0); MCHC 32.8 g/dL (28.0-37.0); MCV 84.9 fL (80.0-100.0); RBC 4.06 mil/uL (4.20-5.00); RDW-CV 19.4 % (10.5-14.5); WBC 7.5 thou/uL (4.0-11.0)
[2019-09-05 08:15] LABS: ALBUMIN 1.9 g/dL (3.4-5.0); CALCIUM 7.6 mg/dL (8.5-10.1); CREATININE 0.7 mg/dL (0.6-1.3); MAGNESIUM 1.6 mg/dL (1.8-2.4); POTASSIUM 4.6 mmol/L (3.5-5.1); TOTAL BILIRUBIN 1.6 mg/dL (<0.1-1.0); TOTAL PROTEIN 5.5 g/dL (6.4-8.2)
--- NOTE | 2019-09-05 10:24 | NUR ---
ASSUMED CARE OF PT AT 0730. PT SITTING IN BED WAITING FOR BREAKFAST. PT MORE ALERT AND AWAKE THIS AM COMPARED TO T-1. A&0X1-2, TALKATIVE AND COOPERATIVE THIS AM. PT USING CALL LIGHT APPROPRIATELY. TRACING AFIB BBB ON THE DOOR TO DOOR FUNDRAISING COLLECTOR. ON 2L NC SAT 94%. CRACKLES AND WHEEZES NOTED. RHONCI NOTED TO LEFT LOBE. PT DENIES ANY PAIN OR SHORTNESS OF BREATH AT THIS TIME. PT UP WITH 1 ASSIST AND WALKER TO BATHROOM. RESPIRATORY VIRAL AND URINALYSIS PENDING. PT GOAL FOR TODAY IS COMPLETE ST EVAL AND SWALLOW EVAL, INCREASE ACTIVITY AND TITRATE OXYGEN. AM ASSESSMENT CHARTED. MEDICATIONS PER OCT. PT REPOSITIONED EVERY 2 HOURS FOR COMFORT. HOURLY ROUNDING OBSERVED. BED IN LOW POSITION. BED ALARM IN PLACE. FALL PRECAUTIONS IN PLACE. CALL LIGHT WITHIN REACH. WILL CONTINUE PLAN OF CARE.
[2019-09-05 11:23] VITALS: BP 89/66
[2019-09-05 15:42] VITALS: BP 95/38
--- NOTE | 2019-09-05 17:31 | NUR ---
NO ACUTE CHANGES THROUGHOUT SHIFT. REFER TO CHARTING. SPEECH THERAPY SAW PT THIS AM AND PER ST-PT APPEARS TO BE DELAYED IN SWALLOWING-WILL WATCH CXR OVER WEEKEND AND CONSIDER SWALLOW EVAL ON THURSDAY 09/07. PT TO HAVE CXR IN AM. PT SLEEPY THIS AFTERNOON AND RESTED IN BED. DENIES ANY PAIN OR SHORTNESS OF BREATH THROUGHOUT AFTERNOON. CONTINUES TO BE ON 2L NC SAT 95%. MEDICATIONS PER OCT. PT REPOSITIONED EVERY 2 HOURS FOR COMFORT. HOURLY ROUNDING OBSERVED. BED IN LOW POSITION. BED ALARM IN PLACE. FALL PRECAUTIONS IN PLACE. CALL LIGHT WITHIN REACH. WILL CONTINUE PLAN OF CARE.
[2019-09-05 21:02] VITALS: BP 104/46
[2019-09-05 23:07] VITALS: BP 91/57
[2019-09-06 04:00] VITALS: BP 92/43
--- NOTE | 2019-09-06 07:07 | NUR ---
PT IS ABLE TO COMMUNICATE HER NEEDS TO STAFF WITH SOME DIFFICULTY; SHE IS OFTEN CONFUSED, PARTIALLY DISORIENTED, AND IMPULSIVE. SHE HAS DENIED THE NEED FOR PAIN MEDICATION UP TO THIS TIME; SHE REFUSED HER SCHEDULED EXT.RELEASE MSCONTIN. PT WAS REPORTED TO HAVE NOT EATEN MUCH OF A SUPPER ON 09/05, BLOOD GLUCOSE THIS AM WAS 61; PT RECEIVED JUICE, DAY SHIFT WILL RECHECK THIS AM. POSSIBLE DISCHARGE SATURDAY.
[2019-09-06 07:30] VITALS: BP 85/64
--- NOTE | 2019-09-06 11:24 | NUR ---
ASSUMED CARE OF PT AT 0730. PT LYING IN BED. ALERT, AWAKE AND ORIENTED X 1. DENIES ANY PAIN OR SHORTNESS OF BREATH AT THIS TIME. PT FORGETFUL AND CONFUSED AT TIMES. BED ALARM AND FALL PRECAUTIONS IN PLACE. PT TRACING AFIB ON THE MILKER MACHINE. PT BLOOD PRESSURE SOFT THIS AM- 90'S/40'S. AM COREG HELD. ON 2L NC SAT 96%. PT UP WITH 1 ASSIST AND WALKER TO BATHROOM. PT TO HAVE REPEAT CXR THIS AM. PT GOAL FOR TODAY IS WORK WITH PHYSICAL THERAPY, MAINTAIN SBP GREATER THAN 100, TITRATE OXYGEN AND INCREASE IN APPETITE. AM ASSESSMENT CHARTED. MEDICATIONS PER OCT. PT REPOSITIONED EVERY 2 HOURS FOR COMFORT. HOURLY ROUNDING OBSERVED. BED IN LOW POSITION. BED ALARM IN PLACE. FALL PRECAUTIONS IN PLACE. CALL LIGHT WITHIN REACH. WILL CONTINUE PLAN OF CARE.
[2019-09-06 12:35] VITALS: BP 99/57
[2019-09-06 17:05] VITALS: BP 141/71
--- NOTE | 2019-09-06 17:48 | NUR ---
NO ACUTE CHANGES THROUGHOUT SHIFT. REFER TO CHARTING. PT SLEEPY EARLY AFTERNOON- MORE ALERT THIS AFTERNOON. PT PROGRESSING TOWARDS GOALS. PT BLOOD PRESSURE BETTER THIS AFTERNOON-130'S SBP, PT TITRATED TO RA SAT 94%. DENIES ANY SHORTNESS OF BREATH OR PAIN THIS AFTERNOON. PT AMBULATED IN ROOM AND INTO HALLWAY WITH NURSING STAFF-TOLERATED WELL. PT CONTINUES TO BE PLEASANTLY CONFUSED. POSSIBLE DISCHARGE BACK TO SNF TOMORROW 09/07. MEDICATIONS PER OCT. PT REPOSITIONED EVERY 2 HOURS FOR COMFORT. HOURLY ROUNDING OBSERVED. BED IN LOW POSITION. BED ALARM IN PLACE. FALL PRECAUTIONS IN PLACE. CALL LIGHT WITHIN REACH. WILL CONTINUE PLAN OF CARE.
[2019-09-06 20:10] VITALS: BP 97/57
[2019-09-07] VITALS: BP 133/79
[2019-09-07 03:38] VITALS: BP 97/52
--- NOTE | 2019-09-07 07:17 | CON ---
[address] [address] CONSULTATION Name: ELIZABETH FISCHER Room: [address] IN M.R.#: [id number] Admission: 09/01/19 Attend Phys: Devon Rivera Discharge: Date of : 35 Report #: [id number] THIS REPORT FOR: //name// CC: VARSHA physician/PCP Baljeet Francisco DATE OF SERVICE: 09/04/2019 INFECTIOUS DISEASE CONSULTATION ATTENDING PHYSICIAN: Dr. Blanco. REASON FOR EVALUATION: Pneumonitis, encephalopathy. HISTORY OF PRESENT ILLNESS: Chart reviewed, patient examined. This is an 84-year-old woman with known history of some dementia, in addition to other significant medical disease burden, lives in a facility as she had been hospitalized earlier this month, diagnosed with respiratory failure, felt to be on the basis of pneumonitis and sepsis. She was noted to have increasing encephalopathy with somnolence as well as respiratory distress, was found to be hypoxic and hypotensive, the systolic blood pressure in the 60s. She was fluid resuscitated and clinically had improved on supplemental oxygen, on evaluation persistent infiltrates; however, over the course of last serial chest x-ray, it had worsened with increased infiltrates on the left side. At this point, she is really quite somnolent. She is not able to give any additional history. She is on supplemental oxygen per nasal cannula. Had low-grade temperature elevation 99.2 earlier today. She has been empirically placed on ceftriaxone and azithromycin. Initially was found to have a pancytopenia and marked hypocalcemia as well. Urinalysis was unremarkable. Lactic acid was 1.2. ALLERGIES: PENICILLIN CAUSES ANGIOEDEMA, TETRACYCLINE WITH ANGIOEDEMA, IODINE, CODEINE, ASPIRIN, CIPRO, FENTANYL AND PANTOPRAZOLE. CURRENT MEDICATIONS: Include azithromycin, ceftriaxone, multivitamin, cholecalciferol, sertraline, aspirin, lisinopril, digoxin, ropinirole, acyclovir, enoxaparin, carvedilol, atorvastatin, budesonide, dicyclomine, sucralfate, gabapentin, guaifenesin, alprazolam, acetaminophen, oxycodone, ipratropium and albuterol inhaler. PAST MEDICAL HISTORY: As described above, dementia; history of hypertension; bilateral mastectomies; fibrocystic disease; atrial fibrillation; COPD; apparently has a postherpetic neuralgia, ongoing hypercholesterolemia; previous history of DVT, right lower extremity; osteoarthritis; atherosclerotic coronary artery disease with acute myocardial infarction; previous stroke in 2011; sleep apnea; [place] [address] CONSULTATION Name: ELIZABETH FISCHER Room: [address]#: [id number] Admission: 09/01/19 Attend Phys: Devon Rivera Discharge: Date of : 35 Report #: [id number] SOCIAL HISTORY: Former smoker. No ethanol, no illicit drug use. FAMILY HISTORY: Noncontributory. REVIEW OF SYSTEMS: Not obtained due to her inability. PHYSICAL EXAMINATION: GENERAL: She is sitting partially upright and leaning forward, apparently unable to keep her head up. She is somnolent, does have some sonorous breathing. Appears chronically ill and undernourished. VITAL SIGNS: Temperature 99.2, pulse 83, respirations 18, blood pressure 110/65. SKIN: Warm, dry, no rashes. HEENT: Normocephalic. NECK: Appears to be supple. LUNGS: Few scattered coarse breath sounds, some upper airway transmitted due to retained secretions in trachea. HEART: Distant, irregular. I do not appreciate a murmur. ABDOMEN: No apparent tenderness. There are no peritoneal signs. Really respond very little to palpation of the abdomen. GENITOURINARY: Deferred. RECTAL: Deferred. LABORATORY DATA: Chest x-ray as described above, left-sided infiltrates, increased from previous. Blood cultures sterile thus far. Prealbumin 11.1. Most recent CBC; WBC 7.0, hemoglobin 11.4, platelet count of 197. Initial counts; white count of 3.8, H and H 7.4 and 22.1, platelets of 118. Initial ABG; pH 7.415, pCO2 of 41.9, pO2 of 265.7, it was on 15 liters nonrebreather. PT of 14.2 and INR of 1.4. Lactic acid of 1.2. Electrolytes: Sodium 143, potassium 2.4, chloride 113, bicarb is 22, anion gap of 8, BUN and creatinine 18 and 0.8, glucose of 62. Calcium was less than 5.0, albumin 1.2, total protein 3.3. Estimated GFR of 68. Followup calcium remains still low, now at 7.5; albumin of 2.0. ASSESSMENT AND PLAN: Pneumonitis, complicated by hypoxemia and respiratory failure, does have encephalopathy that is likely multifactorial, I think some basic dementia, but this has been complicated, however, generally has profound undernourishment as well. We will adjust antimicrobial therapy. Monitor expectantly. Certainly at risk for additional infectious complications as well as noninfectious complications, although it is difficult to ascertain, not certain about the degree of reversibility in this situation. We will see how she does clinically over the next 48-72 hours. <ELECTRONICALLY SIGNED> By: Jackson Hill MD 09/07/19 07 1217 [id number] Hill MD /karan
--- NOTE | 2019-09-07 07:41 | NUR ---
PT CARE ASSUMED AT 1930. SAT DROPPED DOWN TO 88% IN RA, CONNECTED AT 2L NC. ORIENTED TO HERSELF AND CONFUSED. DENIES PAIN AND SOB. CALL LIGHT WITHIN REACH AND BED IN LOW POSITION. HOURLY ROUNDING DONE FOR PT SAFETY.
[2019-09-07 08:00] VITALS: BP 97/63
[2019-09-07 12:00] VITALS: BP 135/67
--- NOTE | 2019-09-07 12:06 | NUR ---
FAXED REFERRAL TO [facility]. CONFIRMED WITH EMILIANO/EVE THAT SHE RECEIVED. [phone]; [phone]; EMILIANO/INTAKE [phone]
[2019-09-07] MEDS ORDERED: ROXICODONE5 M2 PO (12:20)
[2019-09-07] MEDS ORDERED: XANAX 0.25 MG0.25 MG PO (12:20)
[2019-09-07] MEDS ORDERED: MS CONTIN 30 MG30 M1 PO (12:20)
[2019-09-07] MEDS ORDERED: CEFDINIR300 MG PO (12:20)
--- NOTE | 2019-09-07 14:28 | NUR ---
ORDERS NOTED FOR DC BACK TO [facility]/SNF. UPDATED PT AND DTR/SOFIA. CHART COPIED AND DC ORDERS FAXED TO EM[facility]O/[facility]. SHE SET UP W/C VAN FOR 4PM. NURSE HAS NUMBER TO CALL REPORT
[2019-09-07 14:39] VITALS: BP 135/67
[2019-09-07] MEDS ORDERED: MS CONTIN15 MG PO (14:52)
[2019-09-09 16:09] LABS: ADENOVIRUS Negative (Negative); INFLUENZA A Positive (Negative); INFLUENZA B Negative (Negative); METAPNEUMOVIRUS Negative (Negative); PARAINFLUENZA 1 Negative (Negative); PARAINFLUENZA 2 Negative (Negative); PARAINFLUENZA 3 Negative (Negative); RHINOVIRUS Negative (Negative); RSV A Negative (Negative); RSV B Negative (Negative)
== END 2019-09-07 16:35 | DRG 177 ==
LOC: M.ERS 06:26 → M.TBA-ER 09:58 → M.2W 09:58
PROVIDERS: Emergency Medicine; Internal Medicine; Personal Emergency Response Attendant; ADMIT Internal Medicine
PROC: 30233N1 Transfusion of Nonautologous Red Blood Cells into Peripheral Vein, Percutaneous Approach (ICD-10-PCS; principal; 2019-09-01)
DX: J15.6 Pneumonia due to other Gram-negative bacteria (principal); I21.A1 Myocardial infarction type 2; J96.01 Acute respiratory failure with hypoxia; G93.41 Metabolic encephalopathy; J44.0 Chronic obstructive pulmonary disease with (acute) lower respiratory infection; I48.20 Chronic atrial fibrillation, unspecified; D68.59 Other primary thrombophilia; J44.1 Chronic obstructive pulmonary disease with (acute) exacerbation; I10 Essential (primary) hypertension; E87.6 Hypokalemia; I25.10 Atherosclerotic heart disease of native coronary artery without angina pectoris; E78.00 Pure hypercholesterolemia, unspecified; E78.5 Hyperlipidemia, unspecified; G89.29 Other chronic pain; D64.9 Anemia, unspecified; G47.30 Sleep apnea, unspecified; I73.9 Peripheral vascular disease, unspecified; F41.9 Anxiety disorder, unspecified; I51.7 Cardiomegaly; F03.90 Unspecified dementia, unspecified severity, without behavioral disturbance, psychotic disturbance, mood disturbance, and anxiety; F32.9 Major depressive disorder, single episode, unspecified; M19.90 Unspecified osteoarthritis, unspecified site; I25.2 Old myocardial infarction; Z86.73 Personal history of transient ischemic attack (TIA), and cerebral infarction without residual deficits; Z79.899 Other long term (current) drug therapy; Z79.82 Long term (current) use of aspirin; Z88.6 Allergy status to analgesic agent; Z88.1 Allergy status to other antibiotic agents; Z88.5 Allergy status to narcotic agent; Z88.0 Allergy status to penicillin; Z88.8 Allergy status to other drugs, medicaments and biological substances; Z86.718 Personal history of other venous thrombosis and embolism; Z79.51 Long term (current) use of inhaled steroids; Z82.49 Family history of ischemic heart disease and other diseases of the circulatory system; Z83.6 Family history of other diseases of the respiratory system; Z79.891 Long term (current) use of opiate analgesic; Z90.710 Acquired absence of both cervix and uterus; Z90.13 Acquired absence of bilateral breasts and nipples; Z87.891 Personal history of nicotine dependence

== ENCOUNTER 2019-09-28 12:37 | Inpatient (IN) | payer MEDICARE ==
[~2019-09-28] VITALS: Ht 175.3 cm; Wt 59.5 kg
[~2019-09-28 12:37] MED LIST changes: +CEFDINIR300 MG PO; -DIGOXIN0.125 MG/2 PO; +DULCOLAX STOOL100 M1 PO; +GABAPENTIN 100100 MG PO; +LANOXIN 0.25M0.25 M1 PO; +MILK OF MA400 MG/5 M PO; +MUCINEX600 MG PO; -NEURONTIN 300300 M1 PO; +PROAIR HFA8.5 GM INH; +SYMBICORT160 MCG/4. INH; +TYLENOL325 MG PO
[2019-09-28 14:02] LABS: ABSOLUTE BASOPHILS 0.1 thou/uL (0.0-0.2); ABSOLUTE EOSINOPHILS 0.2 thou/uL (0.0-0.7); ABSOLUTE LYMPHOCYTES 1.1 thou/uL (0.8-5.3); ABSOLUTE MONOCYTES 0.7 thou/uL (0.0-1.2); EOSINOPHILS 2.9 %; HEMOGLOBIN 11.3 gm/dL (12.0-15.0); LYMPHOCYTES 13.7 %; MCH 28.9 pg (26.0-34.0); MCHC 33.3 g/dL (28.0-37.0); MONOCYTES 8.4 %; MPV 8.2 fl. (7.2-11.1); NUCLEATED RBCS 0 /100WBC; PLATELET COUNT* 308 thou/uL (150-400); WBC 8.1 thou/uL (4.0-11.0)
[2019-09-28 14:09] LABS: CALCIUM 8.5 mg/dL (8.5-10.1); CREATININE 0.7 mg/dL (0.6-1.3); POTASSIUM 3.9 mmol/L (3.5-5.1)
[2019-09-28 14:14] LABS: APTT 29.4 Seconds (25.0-31.3); INR 1.3; PROTIME 12.9 Seconds (9.20-11.50)
[2019-09-28 14:20] LABS: ALBUMIN 2.8 g/dL (3.4-5.0); TOTAL BILIRUBIN 0.8 mg/dL (<0.1-1.0); TOTAL PROTEIN 7.5 g/dL (6.4-8.2)
[2019-09-28 14:51] LABS: PLATELET ESTIMATE ADEQUATE
[2019-09-28 14:52] LABS: ANISOCYTOSIS 1+; POIKILOCYTOSIS 1+
[2019-09-28 15:36] LABS: URINE BILIRUBIN NEGATIVE (Negative); URINE BLOOD NEGATIVE (Negative); URINE CLARITY CLEAR; URINE COLOR YELLOW; URINE GLUCOSE-RANDOM NEGATIVE (Negative); URINE KETONES NEGATIVE (Negative); URINE LEUKOCYTES-REFLEX NEGATIVE (Negative); URINE NITRITE-REFLEX NEGATIVE (Negative); URINE PROTEIN NEGATIVE (Negative); URINE UROBILINOGEN 0.2 E.U./dl (0.2-1.0)
[2019-09-28 18:15] VITALS: BP 116/67
--- NOTE | 2019-09-28 20:00 | NUR ---
PT LAYING IN BED, AO TO SELF. TELE MONITOR ON, AFIB HR 90-100. O2 2L NC SAT 94%. R HAND SL IV. BED ALARM ON FOR SAFETY. CALL LITE IN EASY REACH.
[2019-09-28 22:00] VITALS: BP 113/62
[2019-09-28 22:40] VITALS: BP 105/79
[2019-09-28] MEDS ORDERED: FUROSEMIDE 40 M40 MG PO (23:12)
[2019-09-28] MEDS ORDERED: KLOR-CON 1010 MEQ PO (23:13)
--- NOTE | 2019-09-28 23:45 | NUR ---
CARDIZEM DRIP RATE DECREASED TO 5ML/HR PER WENDY RN, HR 90'S
[2019-09-29] VITALS: BP 90/44
[2019-09-29 04:00] VITALS: BP 145/100
--- NOTE | 2019-09-29 04:30 | NUR ---
CARDIZEM DRIP DECREASED TO 2.5 PER WENDY RN. HR MAINTAINED 80'S AND LOW 90'S.
--- NOTE | 2019-09-29 06:31 | NUR ---
PT STARTED ON CARDIZEM DRIP LAST NIGHT, EFFECTIVE TO DECREASE HEART RATE TO 80'S, LOW 90'S RUNNING AT 2.5 THIS MORNING. R HAND IV. O2 2L TO KEEP SATS 95%. TELE AFIB, PVC'S. RLE REDNESS, CELLULITIS PINK AND WARM TO TOUCH, PHOTO TAKEN AND PLACED ON CHART. PT TAKING MEDS CRUSHED IN APPLESAUCE AT HS WITHTOUT DIFFICULTY. HAS BEEN NPO SINCE MIDNIGHT. AO TO SELF, CAN BE PLEASANTLY CONFUSED AND ALSO IMPULSIVE AND AGITATED AT TIMES TRYING TO GET OOB-USUALLY SIGNALS PT NEEDS TO URINATE. INCONTINENT AND USING BEDPAN OVERNIGHT, UP WITH ASSIST AND WALKER AT START OF SHIFT BUT PT HR INCREASED SO BEDREST MAINTAINED ALTHOUGH PT NOT HAPPY ABOUT THAT. PT TURNED AND REPOSITIONED Q2 HOURS AND PRN FOR SKIN CARE AND COMFORT. AM LABS. CALL LITE IN EASY REACH, BED ALARM ON FOR SAFETY.
[2019-09-29 09:53] LABS: CREATININE 0.6 mg/dL (0.6-1.3); MAGNESIUM 1.5 mg/dL (1.8-2.4); POTASSIUM 3.9 mmol/L (3.5-5.1)
[2019-09-29 09:55] VITALS: BP 115/75
[2019-09-29 12:00] VITALS: BP 63/36
--- NOTE | 2019-09-29 13:19 | NUR ---
Nutrition: Consult received for unknown reason. Pt admitted with afib. H/o COPD, HTN, likely dementia. Was eating ~50%. Usual wt 120#. Currently NPO. Alb 2.8, prealb 7.2. Severely depleted protein stores. Recommend ordering Beneprotein supplement once diet advances. No other nutrition interventions at this time. Mild risk for now. Will follow up on diet order, need for supplement, labs 10/02/19.
[2019-09-29 16:00] VITALS: BP 91/40
--- NOTE | 2019-09-29 17:01 | NUR ---
ASSUMED CARE OF PATIENT AT APPROX 0730. PATIENT SLEEPY BUT WAKES WITH STIMULUS. BLOOD PRESSURES LOW. PATIENT RECEIVED A HIGH DOSE OF COREG WHICH WAS LISTED ON HER PREVIOUS DISCHARGE FROM THIS HOSPITAL. CARDIZEM DRIP DISCONTINUED THIS AM. PATIENT MORE ALERT THIS AFTERNOON AND BLOOD PRESSURES STABALIZING. HERNANDEZ PLACED FOR CRITICAL I&O DUE TO PATIENT INCONTINENCE. NO COMPLAINTS OF PAIN OR SOA. PATIENT ALERT AND ORIENTED X2. UP WITH ASSIST OF ONE. AFIB ON THE MONITOR. FALL PRECAUTIONS IN PLACE. CALL LIGHT WITHIN REACH. HOURLY ROUNDS COMPLETED. WILL CONTINUE WITH PLAN OF CARE.
--- NOTE | 2019-09-29 17:11 | NUR ---
SW met with pt to complete initial assessment, introduce self, and SW role. Pt resting in bed. Pt alert, oriented to self. Pt said she was at [facility] for therapy but that she actually lives at home with dtr. She said she might return to [facility] if needed. Pt said later that she wanted to go home. Pt has oxygen at 2L and Bipap. Nursing assessment and consult received by SW states pt lives in LTC at [facility]. SW to continue to follow to verify living situation with [facility] and pt dtr and assist with safe dc planning.
[2019-09-29 20:00] VITALS: BP 88/42
[2019-09-30] VITALS: BP 103/57
[2019-09-30 04:00] VITALS: BP 135/72
--- NOTE | 2019-09-30 06:30 | NUR ---
PATIENT PROGRESSING TOWARDS GOALS: REMAINS O2 SAT >92% ON 2L O2 NC. PATIENT HAS C/O PAIN IN LEFT GROIN, PARTIALLY RELIEVED WITH MEDICATION PER MAR AND WALKING AROUND ROOM THIS MORNING. AFIB ON MONITOR, RATE CONTROLLED. CALL LIGHT WITHIN REACH
[2019-09-30 09:30] VITALS: BP 113/59
[2019-09-30 10:19] LABS: ALBUMIN 2.4 g/dL (3.4-5.0); CALCIUM 7.4 mg/dL (8.5-10.1); CREATININE 0.6 mg/dL (0.6-1.3); POTASSIUM 3.9 mmol/L (3.5-5.1)
[2019-09-30 11:05] VITALS: BP 107/73
--- NOTE | 2019-09-30 12:42 | CON ---
[address] [address] CONSULTATION Name: ELIZABETH FISCHER Room: [address] ADM IN M.R.#: [id number] Admission: 09/28/19 Attend Phys: Madhavi Vega Discharge: Date of : 35 Report #: [id number] THIS REPORT FOR: //name// cc: Dhruv Mcclelland MD, James MD ~ THIS REPORT FOR: //name// CC: Dhruv De Oliveira DATE OF SERVICE: 09/29/2019 INFECTIOUS DISEASE CONSULTATION ATTENDING PHYSICIAN: Enzo De Oliveira MD REASON FOR EVALUATION: Suspected right distal lower extremity cellulitis, perhaps multifocal inflammatory eruption. HISTORY OF PRESENT ILLNESS: Chart was reviewed and the patient was examined. 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 She is quite lethargic at this point, not inclined to answer questions more than a simple yes/no, does admit to some right lower extremity pain and discomfort, maintained on supplemental oxygen at 2 liters, which is not her baseline. It is not clear how well she has been eating. The hemodynamics are mildly labile, she has been afebrile. Followup chest x-ray showed mild cardiomegaly; no pulmonary venous congestion; does have extensive pulmonary fibrosis; question of right mid basilar atelectasis versus infiltrate. Urinalysis was otherwise unremarkable. Venous Doppler showed no evidence of deep venous thrombosis. ALLERGIES: PENICILLIN, WHICH SHE DESCRIBES SWELLING, RASH, ANGIOEDEMA; TETRACYCLINE; IODINE; CODEINE; ASPIRIN; CIPROFLOXACIN; PANTOPRAZOLE; FENTANYL. CURRENT MEDICATIONS: Include diltiazem CD, digoxin, sertraline, ropinirole, acyclovir, aspirin, guaifenesin, dicyclomine, carvedilol, sucralfate, atorvastatin, ipratropium, alprazolam, and p.r.n. analgesics. PAST MEDICAL/SURGICAL HISTORY: History of atrial fibrillation; does have aortic stenosis; hypertension; hypercholesterolemia; osteoarthritis; known atherosclerotic coronary artery disease; previous acute myocardial infarction; history of stroke; sleep apnea; previous history of deep vein thrombosis; [place] [address] CONSULTATION Name: ELIZABETH FISCHER Room: [address]#: [id number] Admission: 09/28/19 Attend Phys: Madhavi Vega Discharge: Date of : 35 Report #: [id number] SOCIAL HISTORY: Former smoker. No ethanol. No illicit drug use. FAMILY HISTORY: Noncontributory. REVIEW OF SYSTEMS: Not reliably obtained. PHYSICAL EXAMINATION: GENERAL: She is chronically ill appearing, undernourished, somewhat pale. She does arouse. VITAL SIGNS: Temperature 98.4, pulse 85, respirations 20, blood pressure is 115/75. SKIN: Warm and dry. HEENT: Normocephalic. Extraocular muscles are intact. NECK: Supple. LUNGS: A few scattered coarse breath sounds. HEART: Does have a prominent systolic murmur. It is irregular rate, appears to be controlled. ABDOMEN: Soft, nontender, and nondistended. EXTREMITIES: Distal right lower extremity has evidence of recent edema. She does admit to some discomfort with examination. There are no open lesions, specifically ulcers; no bullous lesions, but diminished pulse. GENITOURINARY AND RECTAL: Deferred. IMAGING: Chest x-ray as described above. LABORATORY DATA: PT 12.9, INR of 1.3, troponin less than 0.06. Electrolytes: Sodium 139, potassium 3.9, chloride 98, bicarbonate is 32, anion gap of 9, BUN and creatinine 9 and 0.7, glucose of 107. LFTs are unremarkable. Albumin is 2.8. Total protein is 7.5. Estimated GFR is 80. CBC: White count of 8.1, hemoglobin and hematocrit 11.3 and 34, platelets of 308,000. Urinalysis is unremarkable. ASSESSMENT AND PLAN: Right lower extremity inflammatory eruption. It is not clear if there is any significant infectious component. We will have arterial Doppler to exclude. She would probably benefit from some compression. Ultimately, if she has got adequate arterial perfusion, we will have to monitor expectantly. She does have multiple drug allergies. We would expect if it worsens, this could be a staph or strep in etiology. In addition to that, she has known vasculopathy and likely has venostasis insufficiency as well. Overall, she remains quite tenuous. At this point, she is having a cardiac workup. We will follow. <ELECTRONICALLY SIGNED> By: Jackson Hill MD 09/30/19 1242 [id number] 1303Jokasia Hill MD /nt
--- NOTE | 2019-09-30 13:56 | EKG ---
[place] [address] ELECTROCARDIOGRAM REPORT Name: ELIZABETH FISCHER Room: [address] IN .R.#: [id number] Admission: 09/28/19 Attend Phys: nEzo De Oliveira Discharge: Date of : 35 Date of Service: 09/28/19 1243 Report #: [id number] THIS REPORT FOR: cc: Dhruv Mcclelland MD, James MD Holkins,Ariel Perkins MD [facility] ~ THIS REPORT FOR: //name// [facility] ED Test Date: 2019-09-28 Test Time: 12:43:45 Pat Name: ELIZABETH FISCHER Department: Room: Gender: F Etl Lead: [facility] : 1935 Requested By: Preeti Jones Order Number: [id number] MD: Ariel Pearl Measurements Intervals [place] Rate: 117 P: HI: QRS: -68 QRSD: 135 T: -2 QT: 357 QTc: 498 Interpretive Statements Atrial fibrillation RBBB and LAFB Probable left ventricular hypertrophy Artifact in lead(s) I,II,III,aVR,aVL,aVF,V1,V2 and baseline wander in lead(s) I,II,aVR Compared to ECG 09/02/2019 15:55:58 Early repolarization no longer present Electronically Signed On 09-28-2019 16:15:08 PLATINUM AND PALLADIUM KETTLE TENDER by Ariel Pearl [email or web address] <ELECTRONICALLY SIGNED> By: Ariel Pearl MD, [facility] 09/28/19 1615 1243 1243 Ariel Pearl MD, [facility] /EPI
[2019-09-30 18:25] LABS: HEMATOCRIT 34.2 % (37.0-47.0); HEMOGLOBIN 11.3 gm/dL (12.0-15.0); MCH 28.8 pg (26.0-34.0); MCV 87.4 fL (80.0-100.0); MPV 8.6 fl. (7.2-11.1); RBC 3.92 mil/uL (4.20-5.00); RDW-CV 20.6 % (10.5-14.5); WBC 9.7 thou/uL (4.0-11.0)
[2019-09-30 18:35] LABS: APTT 28.8 Seconds (25.0-31.3); INR 1.2; PROTIME 12.2 Seconds (9.20-11.50)
--- NOTE | 2019-09-30 18:44 | NUR ---
ASSUMED CARE OF PATIENT AT APPROX 0730. ALERT AND ORIENTED X2-3. ASSESSMENT COMPLETED AND CHARTED. VSS ON 2 LITERS 02. PATIENT IS CONFUSED AND FORGETFUL AT TIMES BUT PLEASANT AND EASILY REORIENTED. PATIENT PAIN INCREASED THIS AFTERNOON WHICH INCREASED CONFUSION AND CAUSED AGITATION. PAIN IS IN RIGHT LEG, NOTED RED DISCOLORATION TO RLE HAS CHANGED COLOR TO PURPLE, PEDAL PULSE DIFFICULT TO FEEL. DR NOTIFIED AND ORDERS FOR HEPARIN DRIP AND LABS DONE. HERNANDEZ REMAINS IN PLACE AND DRAINING DEPENDENTLY. FALL PRECAUTIONS IN PLACE. CALL LIGHT WITHIN REACH. HOURLY ROUNDS COMPLETED. WILL CONTINUE WITH PLAN OF CARE.
--- NOTE | 2019-09-30 19:23 | NUR ---
I SPOKE WITH PATIENTS DAUGHTER SOFIA ON THE PHONE TODAY. DAUGHTER STATES THAT THE PATIENT WAS LIVING AT HOME WITH HER BUT HAS BEEN BACK AND FORTH BETWEEN THE HOSPITAL AND [facility] FOR REHAB. DAUGHTER STATES THAT SHE DOES NOT WANT HER TO GO BACK TO [facility], HER GOAL IS THAT THE PATIENT BE ABLE TO GO HOME WITH HER.
[2019-09-30 19:38] VITALS: BP 126/80
[2019-10-01] VITALS: BP 123/73
[2019-10-01 04:00] VITALS: BP 146/89
--- NOTE | 2019-10-01 05:04 | NUR ---
Patient is only oriented to self. Confused and has been impulsive and restless this shift. Patient given pain medications for apparent pain in leg. She is unable to voice her pain but grabs her leg and moans and is very restless. Heparin gtt started upon start of shift, however discontinued by Dr. Weiner at this time due to noted hematuria in lucio collection bag. Per, vascular physician, patient will be seen this morning. Addressed confusion and impulsiveness with Dr. Blanco, no new orders received at this time. Also, addressed coarse lung sounds and increased respiratory rate with Dr. Blanco. Orders received for one time dose of Lasix. Call light within reach. Fall precautions in place.
[2019-10-01 08:31] VITALS: BP 109/78
--- NOTE | 2019-10-01 10:19 | NUR ---
INFORM DR GAFFNEY THAT PT VERY SLEEPY AND WONT STAY AWAKE. PT ON CPAP AND ABLE TO DOPPLER RIGHT PEDAL PULSE. INSTRUCTED TO KEEP PT NPO UNTIL MORE AWAKE AND WILL START CARDIZEM IV IF NEEDED. PT ON CPAP AT THIS TIME. WILL CONTINUE TO ASSESS.
[2019-10-01 12:24] VITALS: BP 107/71
[2019-10-01 15:59] LABS: HEMATOCRIT 35.1 % (37.0-47.0); HEMOGLOBIN 11.8 gm/dL (12.0-15.0); MCH 28.8 pg (26.0-34.0); MCHC 33.5 g/dL (28.0-37.0); MCV 85.9 fL (80.0-100.0); MPV 8.4 fl. (7.2-11.1); RBC 4.09 mil/uL (4.20-5.00); RDW-CV 20.4 % (10.5-14.5); WBC 8.2 thou/uL (4.0-11.0)
[2019-10-01 16:10] LABS: CALCIUM 7.4 mg/dL (8.5-10.1); CREATININE 0.6 mg/dL (0.6-1.3); POTASSIUM 3.9 mmol/L (3.5-5.1)
[2019-10-01 16:18] VITALS: BP 147/56
[2019-10-01 20:10] VITALS: BP 115/56
[2019-10-02 00:18] VITALS: BP 153/78
[2019-10-02 04:31] VITALS: BP 150/78
--- NOTE | 2019-10-02 07:15 | NUR ---
CHANGE OF SHIFT, BEDSIDE REPORT GIVEN PATIENT SEEN AT BEDSIDE, IN BED ASLEEP BED AALRM SET
[2019-10-02 08:00] VITALS: BP 113/76
--- NOTE | 2019-10-02 08:47 | NUR ---
Faxed updated clinical info to [facility], plan return to skilled at [facility].
--- NOTE | 2019-10-02 10:10 | NUR ---
Nutrition: reassessment. Pt eating fair amount. Alb 2.4, prealb 8.3. 2gm Na diet. Wt stable, 123#. Severely depleted protein stores - RD will order Beneprotein. Mild risk. F/u 10/09/19.
[2019-10-02 11:52] LABS: HEMATOCRIT 36.6 % (37.0-47.0); HEMOGLOBIN 12.1 gm/dL (12.0-15.0); MCHC 33.1 g/dL (28.0-37.0); MCV 87.7 fL (80.0-100.0); MPV 8.7 fl. (7.2-11.1); RBC 4.18 mil/uL (4.20-5.00); RDW-CV 20.5 % (10.5-14.5); WBC 7.1 thou/uL (4.0-11.0)
[2019-10-02 12:57] VITALS: BP 120/63
--- NOTE | 2019-10-02 14:23 | NUR ---
[facility] can accept Pt back over the weekend for skilled, if she is off the IVABXs. [phone] [phone]
[2019-10-02 19:55] VITALS: BP 114/53
[2019-10-02 20:00] VITALS: BP 108/49
[2019-10-03] VITALS: BP 93/54
[2019-10-03 03:30] VITALS: BP 100/62
--- NOTE | 2019-10-03 04:58 | NUR ---
ASSUMED PATIENT CARE AT 1900. PATIENT ALERT AND ORIENTED TIMES 2-3. COMPLAINTS OF PAIN NOTED. ORAL MEDICATION GIVEN PER EMAR. HERNANDEZ IN PLACE TO DEPENDENT DRAINAGE. IV REMAINS PATENT. SUGAR REFINER AND HOURLY ROUNDING COMPLETED DOCUMENTED.
[2019-10-03 08:45] VITALS: BP 147/71
[2019-10-03 12:01] VITALS: BP 153/45
[2019-10-03 16:00] VITALS: BP 111/48
[2019-10-03 20:00] VITALS: BP 99/40
[2019-10-04] VITALS: BP 128/53
[2019-10-04 04:00] VITALS: BP 74/43
--- NOTE | 2019-10-04 05:06 | NUR ---
ASSUMED PATIENT CARE AT 1900. PATIENT ALERT AND ORIENTED TIMES 2-3. COMPLAINTS OF PAIN NOTED. ORAL MEDICATION GIVEN PER EMAR. HERNANDEZ IN PLACE TO DEPENDENT DRAINAGE. IV REMAINS PATENT. 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
[2019-10-04 08:30] VITALS: BP 119/43
[2019-10-04 11:52] LABS: ABSOLUTE BASOPHILS 0.1 thou/uL (0.0-0.2); ABSOLUTE EOSINOPHILS 0.4 thou/uL (0.0-0.7); ABSOLUTE LYMPHOCYTES 1.2 thou/uL (0.8-5.3); ABSOLUTE MONOCYTES 0.7 thou/uL (0.0-1.2); ABSOLUTE NEUTROPHILS 4.4 thou/uL (1.6-8.1); BASOPHILS 1.5 %; EOSINOPHILS 5.5 %; HEMATOCRIT 37.5 % (37.0-47.0); HEMOGLOBIN 12.2 gm/dL (12.0-15.0); MCH 28.4 pg (26.0-34.0); MCHC 32.5 g/dL (28.0-37.0); MCV 87.4 fL (80.0-100.0); MONOCYTES 10.3 %; NUCLEATED RBCS 0 /100WBC; PLATELET COUNT* 335 thou/uL (150-400); POLYS 64.7 %; RBC 4.29 mil/uL (4.20-5.00); RDW-CV 20.4 % (10.5-14.5); WBC 6.8 thou/uL (4.0-11.0)
[2019-10-04 12:03] LABS: ALBUMIN 2.3 g/dL (3.4-5.0); CALCIUM 7.7 mg/dL (8.5-10.1); CREATININE 0.7 mg/dL (0.6-1.3); POTASSIUM 4.2 mmol/L (3.5-5.1); TOTAL BILIRUBIN 0.4 mg/dL (<0.1-1.0); TOTAL PROTEIN 6.9 g/dL (6.4-8.2)
[2019-10-04 12:11] LABS: ANISOCYTOSIS 1+; PLATELET ESTIMATE ADEQUATE
[2019-10-04 13:46] VITALS: BP 115/53
[2019-10-05] VITALS: BP 95/41
[2019-10-05 04:00] VITALS: BP 125/66
--- NOTE | 2019-10-05 06:50 | NUR ---
NO SIGNIFICANT EVENTS THIS SHIFT. PATIENT SLEPT IN BED THE MAJORITY OF THE NIGHT. THERE WAS SOME DIFFICULTY ADMINISTERING MORNING MEDICATIONS, BUT PATIENT WAS ABLE TO TAKE MEDS AFTER REPEATED ENCOURAGEMENT. REMAINS MED/SURG STATUS. NURSING STAFF ESTELLA
[2019-10-05 08:12] VITALS: BP 104/66
--- NOTE | 2019-10-05 09:17 | NUR ---
ASSUMED CARE OF PT THIS AM AROUND 0715- M/C STATUS IN PLACE INDICATED-UPON ASSESSMENT PT NOTED TO BE RESTING IN BED, EYES CLOSED- PT NOTED TO BE SOMULENT THIS AM- A&O X1-Q2 HOUR TURNS IN PLACE INDICATED- HERNANDEZ IN PLACE D/D CLEAR MANISHA URINE, INCONTIENT OF BOWEL- LCTA, RESP EVEN AND UN-LABORED- VSS, O2 SAT 97% ON RA- ABD SOFT/ROUND/NON-TENDER, BS X4 QUADS- LAST BM REPORTED X2 DAYS AGO- IV TO RIGHT HAND NOTED TO BE OUT OF ARM THIS AM UPON ASSESSMENT, NEW IV TO BE PLACED THIS AM- SET UP ASSIST RERQUIRED THIS AM WITH BREAKFAST- NO C/O PAIN/DISCOMFORT- CALL LIGHT AND PERSONAL BELONGINGS WITH IN REACH- BED/CHAIR ALARM IN PLACE AND WORKING FOR PT SAFETY- ALL NEEDS MET AT THIS TIME-WCTM
--- NOTE | 2019-10-05 17:12 | NUR ---
PT A&OX3 VSS. PT HAS REPORTED HX OF IMPULSIVE BEHAVIOR. PT ON ROOM AIR. PT UP W/ASSIST X1 W/WALKER. PT HAS HERNANDEZ IN PLACE FOR I&Os. PT HAS MIDLINE PLACED TO LUE. PT RESTS IN BED WITH CALL LIGHT IN REACH. PT CALLS OUT FOR TEA AND CRACKERS FREQUENTLY. WILL CONTINUE TO MONITOR.
[2019-10-05 19:30] VITALS: BP 128/60
[2019-10-06 05:53] LABS: ALBUMIN 2.3 g/dL (3.4-5.0); CALCIUM 7.7 mg/dL (8.5-10.1); CREATININE 0.6 mg/dL (0.6-1.3); MAGNESIUM 1.8 mg/dL (1.8-2.4); POTASSIUM 4.6 mmol/L (3.5-5.1); TOTAL BILIRUBIN 0.4 mg/dL (<0.1-1.0); TOTAL PROTEIN 6.6 g/dL (6.4-8.2)
--- NOTE | 2019-10-06 06:07 | NUR ---
PT ALERT AND ORIENTED. FORGETFUL. VSS ON RA. MEDS GIVEN PER EMAR. PT SLEPT WELL THIS SHIFT. PAIN MED GIVEN THIS SHIFT. HERNANDEZ IN PLACE. FALL PRECAUTION IN PLACE. CALL LIGHT WITHIN REACH. HOURLY ROUNDINGS MADE. WILL CONTINUE TO MONITOR.
[2019-10-06 07:42] VITALS: BP 143/66
[2019-10-06 11:50] VITALS: BP 114/47
--- NOTE | 2019-10-06 13:18 | NUR ---
DISCHARGE ORDERS RECEIVED. DISCUSSED WITH DTR SOFIA. PT HAS BEEN ACCEPTED TO [facility]. DTR SOFIA STATES SHE PLANS TO TAKE PT HOME WITH HH INSTEAD. STATES SHE HAS USED [facility] IN THE PAST. DTR LIVES WITH PT AND IS GOING TO ASSIST IN HER CARE. DTR WILL TRANSPORT HOME
--- NOTE | 2019-10-06 15:24 | NUR ---
REFERRAL FAXED TO [facility] [phone]
[2019-10-06 16:00] VITALS: BP 131/44
[2019-10-06 18:55] VITALS: BP 114/47
--- NOTE | 2019-10-06 20:53 | NUR ---
I ASSUMED CARE OF THE PATIENT AT 0700. SHE IS ALERT AND ORIENTED X4 WITH SOME CONFUSION AND IS FORGETFUL. BED IS IN THE LOW LOCKED POSITION AND CALL LIGHT IS IN REACH. HOURLY ROUNDING IS COMPLETED AND PATIENT NEEDS ARE MET. PAIN IS DENIED. DAUGHTER WAS CONTACTED ABOUT DISCHARGE AND SHE ARRIVED AFTER 1900. THEY WERE D/C'D AT 2014. MIDLINE AND HERNANDEZ WERE REMOVED. BELONGINGS WERE LEFT HER AND DAUGHTER WAS CONTACTED. THEY ARE IN A LABELED BAG IN THE MEDROOM.
== END 2019-10-06 20:00 | disposition home health service (06) | DRG 177 ==
LOC: M.ERS 12:37 → M.2W 16:17 → M.TBA-ER 16:17 → M.2W 19:29 → M.3W 10-05 16:05
PROVIDERS: Internal Medicine; Personal Emergency Response Attendant; ADMIT Internal Medicine
PROC: 5A09357 Assistance with Respiratory Ventilation, Less than 24 Consecutive Hours, Continuous Positive Airway Pressure (ICD-10-PCS; principal; 2019-09-29)
PROC: 5A09357 Assistance with Respiratory Ventilation, Less than 24 Consecutive Hours, Continuous Positive Airway Pressure (ICD-10-PCS; 2019-10-02)
PROC: 05HY33Z Insertion of Infusion Device into Upper Vein, Percutaneous Approach (ICD-10-PCS; 2019-10-05)
PROC: 5A09357 Assistance with Respiratory Ventilation, Less than 24 Consecutive Hours, Continuous Positive Airway Pressure (ICD-10-PCS; 2019-10-05)
PROC: B54NZZA Ultrasonography of Left Upper Extremity Veins, Guidance (ICD-10-PCS; 2019-10-05)
DX: J69.0 Pneumonitis due to inhalation of food and vomit (principal); J96.90 Respiratory failure, unspecified, unspecified whether with hypoxia or hypercapnia; I50.33 Acute on chronic diastolic (congestive) heart failure; I48.20 Chronic atrial fibrillation, unspecified; R65.10 Systemic inflammatory response syndrome (SIRS) of non-infectious origin without acute organ dysfunction; T82.868A Thrombosis due to vascular prosthetic devices, implants and grafts, initial encounter; L03.119 Cellulitis of unspecified part of limb; I11.0 Hypertensive heart disease with heart failure; G89.29 Other chronic pain; I73.9 Peripheral vascular disease, unspecified; D64.9 Anemia, unspecified; G47.33 Obstructive sleep apnea (adult) (pediatric); F03.90 Unspecified dementia, unspecified severity, without behavioral disturbance, psychotic disturbance, mood disturbance, and anxiety; Y95 Nosocomial condition; J44.9 Chronic obstructive pulmonary disease, unspecified; I35.2 Nonrheumatic aortic (valve) stenosis with insufficiency; E78.00 Pure hypercholesterolemia, unspecified; J84.10 Pulmonary fibrosis, unspecified; I25.10 Atherosclerotic heart disease of native coronary artery without angina pectoris; M16.11 Unilateral primary osteoarthritis, right hip; B02.9 Zoster without complications; I25.2 Old myocardial infarction; Z90.13 Acquired absence of bilateral breasts and nipples; Z88.6 Allergy status to analgesic agent; Z88.1 Allergy status to other antibiotic agents; Z88.5 Allergy status to narcotic agent; Z88.0 Allergy status to penicillin; Z88.8 Allergy status to other drugs, medicaments and biological substances; Z86.718 Personal history of other venous thrombosis and embolism; Z87.891 Personal history of nicotine dependence; Z90.710 Acquired absence of both cervix and uterus; Z87.01 Personal history of pneumonia (recurrent); Z90.49 Acquired absence of other specified parts of digestive tract; Z86.73 Personal history of transient ischemic attack (TIA), and cerebral infarction without residual deficits; Z79.82 Long term (current) use of aspirin; Z79.899 Other long term (current) drug therapy; Z79.51 Long term (current) use of inhaled steroids; Z91.048 Other nonmedicinal substance allergy status; Z82.49 Family history of ischemic heart disease and other diseases of the circulatory system; Z83.6 Family history of other diseases of the respiratory system; Y83.2 Surgical operation with anastomosis, bypass or graft as the cause of abnormal reaction of the patient, or of later complication, without mention of misadventure at the time of the procedure; Y92.89 Other specified places as the place of occurrence of the external cause

== ENCOUNTER 2021-01-10 22:15 | Inpatient (IN) | payer MEDICARE ==
[~2021-01-10] VITALS: Ht 175.3 cm; Wt 60.3 kg
[~2021-01-10 22:15] MED LIST changes: +FUROSEMIDE 40 M40 MG PO; +KLOR-CON 1010 MEQ PO
[2021-01-10 22:19] VITALS: BP 144/55
[2021-01-10] MEDS ORDERED: BUSPIRONE HCL10 MG PO (22:35)
[2021-01-10] MEDS ORDERED: ISOSORBIDE DINI30 MG PO (22:43)
[2021-01-10] MEDS ORDERED: IPRAT-ALBUT 0.5-3 ML INH (22:43)
[2021-01-10] MEDS ORDERED: LISINOPRIL2.5 MG PO (22:43)
[2021-01-10] MEDS ORDERED: MORPHINE SULFAT15 MG PO (22:44)
[2021-01-10] MEDS ORDERED: MORPHINE SULFAT30 M4 PO (22:44)
[2021-01-10] MEDS ORDERED: OMEPRAZOLE40 MG PO (22:45)
[2021-01-10] MEDS ORDERED: NITROSTAT0.4 M1 PO (22:45)
[2021-01-10] MEDS ORDERED: REQUIP 0.25 M0.25 M1 PO (22:45)
[2021-01-10] MEDS ORDERED: CARAFATE1 GM PO (22:45)
[2021-01-10 22:56] LABS: ABSOLUTE BASOPHILS 0.1 thou/uL (0.0-0.2); ABSOLUTE EOSINOPHILS 0.2 thou/uL (0.0-0.7); ABSOLUTE LYMPHOCYTES 0.9 thou/uL (0.8-5.3); ABSOLUTE MONOCYTES 0.8 thou/uL (0.0-1.2); ABSOLUTE NEUTROPHILS 8.5 thou/uL (1.6-8.1); BASOPHILS 0.6 %; EOSINOPHILS 1.5 %; HEMATOCRIT 33.9 % (37.0-47.0); HEMOGLOBIN 11.3 gm/dL (12.0-15.0); LYMPHOCYTES 8.9 %; MCH 30.2 pg (26.0-34.0); MCHC 33.4 g/dL (28.0-37.0); MCV 90.3 fL (80.0-100.0); MPV 7.3 fl. (7.2-11.1); NUCLEATED RBCS 0 /100WBC; PLATELET COUNT* 318 thou/uL (150-400); RBC 3.76 mil/uL (4.20-5.00); RDW-CV 14.9 % (10.5-14.5); WBC 10.5 thou/uL (4.0-11.0)
[2021-01-10 23:08] LABS: APTT 28.5 Seconds (25.0-31.3); INR 1.2; PROTIME 12.6 Seconds (9.20-11.50)
[2021-01-10 23:10] LABS: CALCIUM 8.8 mg/dL (8.5-10.1); CREATININE 0.6 mg/dL (0.6-1.3); POTASSIUM 4.7 mmol/L (3.5-5.1)
[2021-01-10 23:11] LABS: URINE BILIRUBIN NEGATIVE (Negative); URINE BLOOD NEGATIVE (Negative); URINE CLARITY CLEAR; URINE COLOR YELLOW; URINE GLUCOSE-RANDOM NEGATIVE (Negative); URINE KETONES NEGATIVE (Negative); URINE LEUKOCYTES-REFLEX NEGATIVE (Negative); URINE NITRITE-REFLEX NEGATIVE (Negative); URINE PROTEIN TRACE (Negative); URINE SPECIFIC GRAVITY 1.015 (1.005-1.030)
[2021-01-10 23:15] LABS: ALBUMIN 3.4 g/dL (3.4-5.0); MAGNESIUM 1.6 mg/dL (1.8-2.4); TOTAL BILIRUBIN 0.6 mg/dL (<0.1-1.0); TOTAL PROTEIN 7.2 g/dL (6.4-8.2)
[2021-01-11] VITALS (9 sets, daily range): BP systolic 110–130; BP diastolic 40–60
[2021-01-11 00:12] LABS: BE 2.2 mmol/L (-2 to +3); PO2 99.3 mmHg (75.0-100.0); pH 7.327 (7.340-7.450)
[2021-01-11 11:29] LABS: BE 0.4 mmol/L (-2 to +3); PCO2 48.3 mmHg (35.0-45.0); PO2 78.2 mmHg (75.0-100.0); pH 7.355 (7.340-7.450)
--- NOTE | 2021-01-11 13:59 | NUR ---
Covid negative. Pt is A&O. Resides at home with dtr. Independent. Uses a cane for mobility. Pt wears home o2 continuous at 2L. Pt also has a bipap. Hx of [facility] HH. Hx of skilled at [facility]. Anticipate dc in a few days to home with [facility] per Pt's request. Cm asked [place] with [facility] to come and see Pt. Following.
--- NOTE | 2021-01-11 14:21 | EKG ---
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 : 1935 Requested By: Preeti Jones Order Number: [id number] MD: Ariel Pearl Measurements Intervals [place] Rate: 86 P: MD: QRS: -60 QRSD: 145 T: 35 QT: 401 QTc: 480 Interpretive Statements Atrial fibrillation RBBB and LAFB Probable left ventricular hypertrophy Baseline wander in lead(s) V5 Compared to ECG 09/28/2019 12:43:45 No significant changes Electronically Signed On 01-11-2021 14:21:04 CDT by Ariel Pearl [email or web address] <ELECTRONICALLY SIGNED> By: Ariel Pearl MD, [facility] 01/11/21 1421 19 19 Ariel Pearl MD, [facility] /EPI
--- NOTE | 2021-01-11 16:40 | NUR ---
[facility] Bedside assessment note: Referral received from [facility] after patient said she had been on our home health before. Met with patient and she definitely wanted HH, Called daughter, Jennifer who said she has had [facility] HH before and they will stick with that plan. Her PCP is Dr. Kuhn from [facility]. Informed [facility] of all.
--- NOTE | 2021-01-11 16:51 | NUR ---
ASSUMED PT CARE AT 0730. PT IS A&OX4, PLEASANT AND COOPERATIVE. PT UP WITH CANE AND STAND BY ASSIST X1 TO BATHROOM. SAFETY MEASURES IN PLACE AND PT VERBALIZES UNDERSTANDING. PT WITH SOA WITH EXERTION. LUNGS SOUNDS ARE DIMINISHED. O2 PER NC AT 2L. MEDICATIONS ADMINISTERED ORDERED. PT IN BED RESTING WITH EYES CLOSED AT THIS TIME.
[2021-01-12 04:00] VITALS: BP 108/49
[2021-01-12 04:53] LABS: HEMOGLOBIN 9.6 gm/dL (12.0-15.0); MCH 30.1 pg (26.0-34.0); MCHC 33.2 g/dL (28.0-37.0); MCV 90.5 fL (80.0-100.0); MPV 7.1 fl. (7.2-11.1); RBC 3.2 mil/uL (4.20-5.00); RDW-CV 14.3 % (10.5-14.5); WBC 6.4 thou/uL (4.0-11.0)
[2021-01-12 05:36] LABS: ALBUMIN 2.9 g/dL (3.4-5.0); CALCIUM 8.9 mg/dL (8.5-10.1); CREATININE 0.7 mg/dL (0.6-1.3); MAGNESIUM 1.9 mg/dL (1.8-2.4); POTASSIUM 5.8 mmol/L (3.5-5.1); TOTAL BILIRUBIN 0.3 mg/dL (<0.1-1.0); TOTAL PROTEIN 6.4 g/dL (6.4-8.2)
--- NOTE | 2021-01-12 07:14 | NUR ---
PT IS ABLE TO COMMUNICATE HER NEEDS TO STAFF WITH MINOR DIFFICULTY; SHE IS A LITTLE CONFUSED AT TIMES. CURRENT PAIN MEDICATION REGIMEN HAS BEEN ADEQUATE FOR CONTROLLING HER PAIN UP TO THIS TIME. PT DID WEAR HER BIPAP FOR MOST OF THE TIME LAST NIGHT.
[2021-01-12 07:52] VITALS: BP 124/44
[2021-01-12 08:05] VITALS: BP 114/52
[2021-01-12 09:54] LABS: CREATININE 0.8 mg/dL (0.6-1.3); POTASSIUM 5.2 mmol/L (3.5-5.1)
[2021-01-12 13:20] VITALS: BP 92/53
--- NOTE | 2021-01-12 13:49 | NUR ---
Anticipate dc in a few days. Monitor o2 sats. Plan home with [facility]
[2021-01-12 16:53] VITALS: BP 100/55
[2021-01-12 20:00] VITALS: BP 119/60
[2021-01-13] VITALS (7 sets, daily range): BP systolic 99–176; BP diastolic 52–84
[2021-01-13 04:57] LABS: ABSOLUTE LYMPHOCYTES 1.3 thou/uL (0.8-5.3); ABSOLUTE NEUTROPHILS 7.6 thou/uL (1.6-8.1); BASOPHILS 0.1 %; HEMATOCRIT 29.6 % (37.0-47.0); HEMOGLOBIN 9.9 gm/dL (12.0-15.0); LYMPHOCYTES 12.8 %; MCH 30.2 pg (26.0-34.0); MCHC 33.3 g/dL (28.0-37.0); MCV 90.5 fL (80.0-100.0); MONOCYTES 10.4 %; MPV 7.5 fl. (7.2-11.1); NUCLEATED RBCS 0 /100WBC; PLATELET COUNT* 256 thou/uL (150-400); POLYS 76.7 %; RBC 3.27 mil/uL (4.20-5.00); RDW-CV 14.8 % (10.5-14.5); WBC 9.9 thou/uL (4.0-11.0)
[2021-01-13 05:05] LABS: CALCIUM 8.4 mg/dL (8.5-10.1); CREATININE 0.7 mg/dL (0.6-1.3); MAGNESIUM 2.1 mg/dL (1.8-2.4); POTASSIUM 5.1 mmol/L (3.5-5.1); TOTAL BILIRUBIN 0.3 mg/dL (<0.1-1.0); TOTAL PROTEIN 6.3 g/dL (6.4-8.2)
[2021-01-13] MEDS ORDERED: PREDNISONE 20 M20 MG PO (11:53)
[2021-01-13] MEDS ORDERED: CEFDINIR300 MG PO (11:53)
--- NOTE | 2021-01-13 12:38 | NUR ---
Pt was scheduled to dc today to home with HH, rapid called, anticipate dc tomorrow. CM faxed initial referral to [facility], orders will need to be faxed at [phone]. Dtr to transport home.
--- NOTE | 2021-01-13 14:00 | NUR ---
PT RESTING AT THIS TIME ON BIPAP. PT HAD SEVERAL BMS THIS AM AND REQUIRED MULTIPLE BED CHANGES.CAME INTO PTS ROOM FOR MED PASS AND FOUND PT TACHYPNEIC,HR ELEVATED,O2 SAT 77% ON 2L NC WITH CYANOTIC LIPS,CAP REFILL DECREASED BUT NO CYANOSIS NOTED TO NAIL BED.RESPIRATORY CALLED TO ASSESS WHO AGREED WITH [facility] RESPONSE. PT PLACED ON BIPAP AT 70% BUT ABLE TO TITRATE TO 50% AFTER RECOVERY.CXR ORDERED AND SOLUMEDROL GIVEN. RT TO TITRATE PT OFF BIPAP.NOTHING FURTHER.CLWR.WCTM
--- NOTE | 2021-01-13 14:14 | 2DMMODE ---
[place] [address] 2 D/M-MODE ECHOCARDIOGRAM Name: ELIZABETH FISCHER Room: [address] IN .#: [id number] Admission: 01/11/21 Attend Phys: Baljeet Francisco Discharge: Date of : 35 Date of Service: 01/13/21 1413 Report #: [id number] THIS REPORT FOR: cc: Dhruv Mcclelland MD, James MD Holkins,Ariel Perkins MD [facility] ~ APPROVED REPORT Study performed: 01/13/2021 11:31:00 EXAM: Comprehensive 2D, Doppler, and color-flow Echocardiogram Patient Location: In-Patient Room #: [facility] Status: routine BSA: 1.74 HR: 110 bpm BP: 176/81 mmHg Rhythm: Atrial Fibrillation Other Information Study Quality: Good Indications Dyspnea 2D Dimensions IVSd: 10.36 (7-11mm) LVOT Diam: 20.21 (18-24mm) LVDd: 40.51 mm PWd: 10.18 (7-11mm) Ascending Ao: 31.06 (22-36mm) LVDs: 31.45 (25-40mm) Aortic Root: 28.81 mm Volumes Left Atrial Volume (Systole) LA ESV Index: 56.80 mL/m2 Aortic Valve AoV Peak Ian.: 3.76 m/s AO Peak Gr.: 56.68 mmHg LVOT Max P.12 mmHg AO Mean Gr.: 36.15 mmHg LVOT Mean P.03 mmHg LVOT Max V: 0.73 m/s AO V2 VTI: 65.46 cm LVOT Mean V: 0.47 m/s EVANS (VTI): 0.71 cm2 LVOT V1 VTI: 14.51 cm AI [place]: 5.35 m/s2 [place] [address] 2 D/M-MODE ECHOCARDIOGRAM Name: ELIZABETH FISCHER Room: [address] IN .R.#: [id number] Admission: 01/11/21 Attend Phys: Baljeet Francisco Discharge: Date of : 35 Date of Service: 01/13/21 1413 Report #: [id number] PHT: 239.35 ms Mitral Valve MV Mean Gr.: 6.02 mmHg Pulmonary Valve PV Peak Ian.: 1.14 m/s PV Peak Gr.: 5.21 mmHg Tricuspid Valve RAP Estimate: 15.00 mmHg TR Peak Gr.: 68.17 mmHg RVSP: 83.00 mmHg PA Pressure: 83.00 mmHg Left Ventricle The left ventricle is normal size. There is normal LV segmental wall motion. There is normal left ventricular wall thickness. Left ventricular systolic function is normal. The left ventricular ejection fraction is within the normal range. LVEF is 55-60%. This study is not technically sufficient to allow evaluation of the LV diastolic function due to atrial fibrillation. Right Ventricle Right ventricle is mildly dilated. The right ventricular systolic function is normal. Atria Left atrium is moderately dilated. Right atrium is moderately dilated. Aortic Valve Moderate aortic valve sclerosis. Mild to moderate aortic regurgitation. Moderate to severe aortic stenosis. Mitral Valve Moderate mitral annular calcification. Moderate mitral regurgitation. No evidence of mitral valve stenosis. Tricuspid Valve The tricuspid valve is normal in structure. Moderate tricuspid regurgitation. There is moderate to severe pulmonary hypertension. Pulmonic Valve The pulmonary valve is normal in structure. Mild [place] [address] 2 D/M-MODE ECHOCARDIOGRAM Name: ELIZABETH FISCHER Room: [address] IN ..#: [id number] Admission: 01/11/21 Attend Phys: Baljeet Francisco Discharge: Date of : 35 Date of Service: 01/13/21 1413 Report #: [id number] Great Vessels The aortic root is normal in size. IVC is dilated and collapses <50% with inspiration. Pericardium There is no pericardial effusion. <Conclusion> The left ventricle is normal size. There is normal left ventricular wall thickness. Left ventricular systolic function is normal. The left ventricular ejection fraction is within the normal range. LVEF is 55-60%. This study is not technically sufficient to allow evaluation of the LV diastolic function due to atrial fibrillation. Right ventricle is mildly dilated. Left atrium is moderately dilated. Right atrium is moderately dilated. Moderate aortic valve sclerosis. Mild to moderate aortic regurgitation. Moderate to severe aortic stenosis. Moderate mitral annular calcification. Moderate mitral regurgitation. No evidence of mitral valve stenosis. The tricuspid valve is normal in structure. Moderate tricuspid regurgitation. There is moderate to severe pulmonary hypertension. IVC is dilated and collapses <50% with inspiration. There is no pericardial effusion. There is normal LV segmental wall motion. <ELECTRONICALLY SIGNED> By: Ariel Pearl MD, FACC 01/13/21 1413 1413 1413 Ariel Pearl MD, FACC /INF
[2021-01-14 00:59] VITALS: BP 129/63
[2021-01-14 04:00] VITALS: BP 116/71
[2021-01-14 04:20] LABS: HEMOGLOBIN 11.2 gm/dL (12.0-15.0); MCH 29.9 pg (26.0-34.0); MCHC 33.1 g/dL (28.0-37.0); MCV 90.2 fL (80.0-100.0); MPV 7.4 fl. (7.2-11.1); NUCLEATED RBCS 0 /100WBC; PLATELET COUNT* 252 thou/uL (150-400); RBC 3.77 mil/uL (4.20-5.00); RDW-CV 14.9 % (10.5-14.5); WBC 8.5 thou/uL (4.0-11.0)
[2021-01-14 04:39] LABS: ALBUMIN 3.2 g/dL (3.4-5.0); CALCIUM 8.9 mg/dL (8.5-10.1); CREATININE 0.6 mg/dL (0.6-1.3); MAGNESIUM 2.1 mg/dL (1.8-2.4); POTASSIUM 4.7 mmol/L (3.5-5.1); TOTAL BILIRUBIN 0.4 mg/dL (<0.1-1.0); TOTAL PROTEIN 6.7 g/dL (6.4-8.2)
[2021-01-14 06:37] LABS: ABSOLUTE BASOPHILS 0.2 thou/uL (0.0-0.2); ABSOLUTE EOSINOPHILS 0.3 thou/uL (0.0-0.7); ABSOLUTE LYMPHOCYTES 1.5 thou/uL (0.8-5.3); ABSOLUTE MONOCYTES 0.6 thou/uL (0.0-1.2); PLATELET ESTIMATE ADEQUATE
[2021-01-14 08:00] VITALS: BP 149/65
[2021-01-14 12:00] VITALS: BP 120/46
--- NOTE | 2021-01-14 14:23 | NUR ---
ASSUMED CARE OF PATIENT THIS AM AT 0730. PATIENT IS ALERT AND ORIENTED X 4. SHE DENIES PAIN TODAY. TELE SHOWS AFIB WITH A BBB. PATIENT ASSISTED UP TO BSC AND WITH MEALS. O2 WAS AT 6 LITERS NC. HER SATS WERE 97%. O2 DECREASED TO 5 LITERS THEN 4. O2 SAT WAS 92 % ON 4 LITERS. WILL CONTINUE TO MONITOR.
[2021-01-14 16:00] VITALS: BP 111/46
[2021-01-14 20:00] VITALS: BP 134/65
[2021-01-15 00:10] VITALS: BP 80/50
[2021-01-15 03:59] VITALS: BP 89/50
[2021-01-15 08:00] VITALS: BP 112/63
[2021-01-15 10:54] LABS: CALCIUM 8.4 mg/dL (8.5-10.1); CREATININE 0.8 mg/dL (0.6-1.3); POTASSIUM 4.2 mmol/L (3.5-5.1)
[2021-01-15 10:55] VITALS: BP 124/44
--- NOTE | 2021-01-15 10:58 | NUR ---
SENT PAGE TO [facility] TO NOTIFY THEM THAT PATIENT IS DISCHARGING HOME. FAXED DISCHARGE ORDERS TO [facility]. RN NOTIFIED TO EXPECT A PHONE CALL FROM [facility]. ALSO UPDATED RN TO NOTIFY FAMILY TO BRING O2.
[2021-01-15 12:00] VITALS: BP 76/47
--- NOTE | 2021-01-15 13:17 | NUR ---
ASSUMED CARE OF PATIENT THIS AM AT 0730. PATIENT IS DROWSY, SLEEPY AND SOMEWHAT CONFUSED TODAY. TELE SHOWS CONTINUED A-FIB WITH A BBB. SHE DENIES PAIN. O2 SAT IS 94% ON [address] IN TO ROUND AND DISCHARGE ORDERS WERE WRITTEN. PATIENT IS TO DISCHARGE TO HOME WITH HOME HEALTH. INFORMATION FAXED TO [facility]. [facility] RESPONDED AND SAID THAT THEY COULD NOT TAKE THE PATIENT. [facility] WAS THEN NOTIFIED. THEY RESPONDED AND SAID THAT THEY COULD NOT ACCEPT THE PATIENT BECAUSE SHE NEEDED TO BE DISCHARGED BY [facility]. [facility]. [facility] CONTACTED [facility] DIRECTLY AND THEY CAN NOW ACCEPT THE PATIENT. PATIENT'S DAUGHTER WAS NOTIFIED. PATIENT TO DISCHARGE THIS AFTERNOON.
[2021-01-15 16:00] VITALS: BP 104/58
--- NOTE | 2021-01-17 11:31 | CON ---
[address] [address] CONSULTATION Name: ELIZABETH FISCHER Room: [address] M.R.#: [id number] Admission: 01/11/21 Attend Phys: Devon Rivera Discharge: 01/15/21 Date of : 35 Report #: [id number] THIS REPORT FOR: cc: Dhruv Mcclelland MD, James MD Pervez,Paramjit DENG ~ DOC #: [id number] Paramjit Tillman MD DATE OF CONSULTATION: 01/11/2021 CONSULT REQUESTED BY: Dr. Blanco. INDICATION FOR CONSULTATION: Shortness of breath. HISTORY OF PRESENT ILLNESS: This is an 85-year-old female with past medical history does include a history of COPD. 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 The patient is on significant amounts of narcotics. Presentation at this time is with shortness of breath. The patient is not able to provide me adequate history. She in fact goes to sleep, even in between sentences while I am talking to her, note that she is on significant amounts of narcotics. She is reported to have had a cough as well as a fever. There is no swelling of lower extremities. There is no known history of pain in her calf. She is unable to tell me where the pain is for which she is taking narcotics. She says that it may be her hips. She has had disturbed sleep at night as well as sleepiness during the day. The patient answers to the negative for 12 other questions for review of systems; however, it does not appear to me that she is understanding my questions adequately likely due to her being under the influence of narcotics. Her family called the patient's RN and told the patient's RN that she was suspected of having a possible malignancy of the lung recently. PAST MEDICAL HISTORY: COPD, on oxygen 2 liters long-term, obstructive sleep apnea on a CPAP long-term, severe aortic stenosis, the last echocardiogram shows a left ventricular ejection fraction of 60-65%, there is also aortic regurgitation and pulmonary artery systolic is 25, atrial fibrillation, not on long-term anticoagulation, chronic hip pain on narcotics long-term, two episodes of DVT in the past and is reported to have an IVC filter in place, osteoarthritis, coronary artery disease status post PA, stroke, peripheral vascular disease, subclavian steal syndrome, ERCP for stone removal in 2013, [place] [address] CONSULTATION Name: ELIZABETH FISCHER Room: [address] M.R.#: [id number] Admission: 01/11/21 Attend Phys: Devon Rivera Discharge: 01/15/21 Date of : 35 Report #: [id number] SOCIAL HISTORY: Extensive history of smoking in the past, has now discontinued, unable to quantify exactly at this time. No known history of heavy alcohol use or illegal drug use, but she is on prescribed narcotics. FAMILY HISTORY: No pertinent family history known at this time. ALLERGIES: There are multiple allergies listed on the record. I am not certain if the patient in fact is allergic to all of these medications. SHE IS REPORTED AMONGST OTHER MEDICATIONS TO BE ALLERGIC TO IODINES, TETRACYCLINES, PENICILLINS, AND CIPROFLOXACIN. She has had diarrhea with pantoprazole, this is likely not an allergy. She has had altered mental status with fentanyl, this is likely not an allergy and the same is the case with codeine, aspirin. The patient tolerates cephalosporins without any problems. PHYSICAL EXAMINATION: GENERAL: She was fully awake and initially was able to answer orientation questions; however, has difficulty talking in full sentences and goes to sleep in between sentences and when I wake her up, she is fully awake. VITAL SIGNS: Has a pulse of 53 and a blood pressure of ____ saturating 97% on 2 liters nasal cannula. Respiratory rate when she is awake it is around 16-17 slows down to around 10 when she is asleep. She is afebrile with temperature is 37.1. Body mass index is 19.6. HEENT: Head is normocephalic and atraumatic. Pupils are equal and reactive. There is no throat erythema. Mucous membranes appear to be moist. NECK: Does not show raised JVP asymmetry, mass or lymph nodes. CHEST: Symmetrical expansion on inspection and palpation. On auscultation, breath sounds are decreased, but equal, I do not hear any added sounds. HEART: Regular. There is a 2/6 systolic murmur. ABDOMEN: Soft and nontender. EXTREMITIES: Lower extremities show no edema, no calf tenderness. There are some varicose veins present. NEUROLOGIC: Moves all extremities bilaterally equally and spontaneously. No focal deficit identified. DIAGNOSTIC DATA: The patient's chest x-ray was reviewed, it shows some chronic changes, I do not see any acute infiltrates or increase in pulmonary vascular congestion. V/Q scan is low probability for pulmonary emboli. Venous Dopplers are negative. There is an incidental note is made of distended loops of bowel seen on x-ray chest. ASSESSMENT AND PLAN: 1. Shortness of breath, etiology is not fully defined at this time. She does have COPD. She also does have severe aortic stenosis; however, will need [facility] [address] [place] [address] CONSULTATION Name: ELIZABETH FISCHER Room: [address] IN [facility].#: [id number] Admission: 01/11/21 Attend Phys: Devon Rivera Discharge: 01/15/21 Date of : 35 Report #: [id number] further evaluation to assess as to whether shortness of breath increased recently. The patient is on narcotics as above. At this time, I would go ahead and obtain a CT chest without contrast and see where we stand. 2. Acute on chronic hypercarbic respiratory failure, arterial blood gases are consistent with this. The patient states that she has a CPAP at home. CPAP will be insufficient to control this. I recommend a BiPAP or Trilogy for her long-term at home. We will see if we can arrange the same. Meanwhile, we will keep her on average volume assured pressure support while asleep on BiPAP. While she is here, we will continue to titrate oxygen. 3. Chronic obstructive pulmonary disease exacerbation. She is not actively bronchospastic at the time of my evaluation. I will go ahead and cut back Solu-Medrol. Continued nebulized bronchodilators. Pending further evaluation. I feel that is reasonable to continue broad spectrum antibiotics as currently ordered. We will reassess once CT chest is available. If feasible, then also recommend obtaining a sputum culture and nasal swab for MRSA. Note that her COVID-19 PCR as well as a antigen is negative. 4. Narcotic use. I would recommend considering cutting back the patient's narcotics. 5. History of severe aortic stenosis. She does not appear to be fluid overloaded at this time. 6. Distended loops of bowel on x-ray chest/history of IVC filter placement/history of DVT. We will do an x-ray of abdomen and assess this further. D-dimer is elevated; however, it appears unlikely that there is new thromboembolism at this time. 6. Possible history of recently suspected lung malignancy. The patient's RN told me that the patient's family was informed of this by her tissue technician, Dr. Rucker, we will try to get further information in this regard, I have ordered a CT chest without contrast as above. There are no obvious findings consistent with a malignancy on the patient's chest x-ray. 7. High aspiration risk. I recommend aspiration precautions. Thank you for this consultation. Paramjit Tillman MD AP/ROBE/AMI <ELECTRONICALLY SIGNED> By: Paramjit Tillman MD 01/17/21 1131 [id number] Tillman MD /nt
== END 2021-01-15 18:00 | disposition home health service (06) | DRG 291 ==
LOC: M.ERS 22:15 → M.2W 01-11 00:08 → M.TBA-ER 01-11 00:08 → M.2W 01-11 06:37
PROVIDERS: Family Medicine; Internal Medicine; Internal Medicine Critical Care Medicine; Personal Emergency Response Attendant; ADMIT Internal Medicine; ATTEND Internal Medicine
DX: I11.0 Hypertensive heart disease with heart failure (principal); J96.22 Acute and chronic respiratory failure with hypercapnia; J96.21 Acute and chronic respiratory failure with hypoxia; G45.8 Other transient cerebral ischemic attacks and related syndromes; J44.1 Chronic obstructive pulmonary disease with (acute) exacerbation; K56.7 Ileus, unspecified; I50.33 Acute on chronic diastolic (congestive) heart failure; E78.00 Pure hypercholesterolemia, unspecified; M19.90 Unspecified osteoarthritis, unspecified site; I73.9 Peripheral vascular disease, unspecified; G47.30 Sleep apnea, unspecified; R59.1 Generalized enlarged lymph nodes; F03.90 Unspecified dementia, unspecified severity, without behavioral disturbance, psychotic disturbance, mood disturbance, and anxiety; I27.20 Pulmonary hypertension, unspecified; K59.00 Constipation, unspecified; I35.0 Nonrheumatic aortic (valve) stenosis; Z20.822 Contact with and (suspected) exposure to COVID-19; Z79.82 Long term (current) use of aspirin; Z79.899 Other long term (current) drug therapy; Z88.1 Allergy status to other antibiotic agents; I25.2 Old myocardial infarction; Z88.0 Allergy status to penicillin; Z88.8 Allergy status to other drugs, medicaments and biological substances; Z87.891 Personal history of nicotine dependence; Z90.710 Acquired absence of both cervix and uterus; Z90.13 Acquired absence of bilateral breasts and nipples; Z90.49 Acquired absence of other specified parts of digestive tract

== ENCOUNTER 2021-01-30 19:32 | Emergency (ER) | payer MEDICARE ==
[~2021-01-30] VITALS: Ht 165.1 cm; Wt 61.2 kg
[~2021-01-30 19:32] MED LIST changes: +BUSPIRONE HCL10 MG PO; +CARAFATE1 GM PO; +IPRAT-ALBUT 0.5-3 ML INH; +ISOSORBIDE DINI30 MG PO; +LISINOPRIL2.5 MG PO; +MORPHINE SULFAT15 MG PO; +MORPHINE SULFAT30 M4 PO; +NITROSTAT0.4 M1 PO; +OMEPRAZOLE40 MG PO; +PREDNISONE 20 M20 MG PO
[2021-01-30 22:18] VITALS: BP 77/40
== END 2021-01-30 23:14 ==
LOC: M.ERS 19:32
DX: J96.90 Respiratory failure, unspecified, unspecified whether with hypoxia or hypercapnia (principal); I10 Essential (primary) hypertension; I48.91 Unspecified atrial fibrillation; J44.9 Chronic obstructive pulmonary disease, unspecified; G47.30 Sleep apnea, unspecified; M19.90 Unspecified osteoarthritis, unspecified site; Z90.49 Acquired absence of other specified parts of digestive tract; Z90.710 Acquired absence of both cervix and uterus; Z90.13 Acquired absence of bilateral breasts and nipples; Z91.041 Radiographic dye allergy status; Z88.6 Allergy status to analgesic agent; Z88.1 Allergy status to other antibiotic agents; Z88.0 Allergy status to penicillin